=== PATIENT | female | born 1935 | race Caucasian/White ===

== ENCOUNTER → 2016-03-23 | Outpatient (CLI) | payer MEDICARE, OTHER ==
[~2016-03-23] MED LIST: ADVAIR 250/501 EA INH; ALBUTEROL0.09 MG/A2 IH; ALLERGY RELIEF10 M1 PO; ALLOPURINOL100 MG PO; AZITHROMYCIN250 MG PO; B12,B-12,B 12500 MC1 PO; CALCIUM + D 6001 TA1 PO; CEFUROXIME250 MG PO; CELEBREX100 MG PO; CELEBREX200 MG PO; DAYPRO600 M1 PO; DOXYCYCLINE100 M3 PO; ELIQUIS5 M1 PO; Flovent 220 M220 MCG INH; JANUMET 500 MG-1 TA1 PO; JANUVIA25 MG PO; K-DUR 1010 MEQ PO; LASIX20 MG PO; LORATADINE10 MG PO; LOSARTAN POTASS1 TA1 PO; LOSARTAN POTASS1 TA2 PO; LOSARTAN POTASS1 TA4 PO; MELOXICAM7.5 MG PO; METOPROLOL SUC100 M1 PO; METOPROLOL50 MG PO; MICRO-K10 MEQ PO; MUCINEX600 MG PO; NEURONTIN100 MG PO; PANTOPRAZOLE SO40 MG PO; PANTOPRAZOLE40 M1 PO; POTASSIUM20 MEQ PO; PREDNISONE10 MG PO; ROBAXIN750 MG PO; SYNTHROID0.1 MG PO; VENTOLIN 02.5 MG/3 M INH; VENTOLIN H0.09 MG/AC INH; VISION PLUS LU1 EACH PO; VITAMIN D1000 IU PO; VITAMIN D50000 I3 PO; ZITHROMAX250 MG PO; ZOLPIDEM10 MG PO; [UNRECOGNIZED DRUG - CODE] PO
[2016-03-23 11:53] LABS: POTASSIUM 3.5 mmol/L (3.5-5.1)
== END | disposition home or self-care (01) ==
LOC: LAB 10:43
PROVIDERS: Family Medicine
DX: N17.9 Acute kidney failure, unspecified (principal)

== ENCOUNTER 2016-06-21 12:15 | Inpatient (IN) | payer MEDICARE, OTHER ==
[~2016-06-21] VITALS: Ht 165.1 cm; Wt 74.9 kg
--- NOTE | ~2016-06-21 | CON ---
[place], [place] REPORT OF CONSULTATION NAME: ISHAN FINLEY UNIT #: [id number] ROOM: [facility] DOCTOR: BRANDON LANCE,NAKITA BIRTHDATE: [birth year] DOS: 06/22/2016 CARDIOLOGY CONSULT REASON FOR CONSULTATION: Congestive heart failure. CLINICAL HISTORY: The patient a 80-year-old patient with a history of hypertension, diastolic heart failure, chronic atrial fibrillation, peripheral vascular disease, diabetes admitted to the hospital for a slight worsening of her lower extremity edema as well as shortness of breath for the past couple of weeks but her symptoms are more with exertional dyspnea, but no palpitations, dizziness, no syncope. She did have some mild orthopnea. No nausea, vomiting, diarrhea. No headache. No tingling, numbness or weakness. No hemoptysis or cough. No hematuria, dysuria. No joint tenderness or swelling. She have occasional some resting sharp left-sided chest pains at rest, nonradiating, no associated symptoms and this pain lasts for about a couple of minutes and relieves on its own. The Cardiology consulted for her congestive heart failure based on her symptoms and elevated ProBNP levels. REVIEW OF SYSTEMS: Review of the 10 systems negative except as mentioned above. PAST MEDICAL HISTORY: 1. Chronic atrial fibrillation. 2. Chronic diastolic heart failure. 3. hypertension. 4. Chronic kidney disease. 5. Peripheral vascular disease. 6. Hypothyroidism. 7. GERD. 8. COPD. 9. Morbid obesity. 10. Type 2 diabetes. 11. TMJ pain, chronic. 12. Anemia. 13. Mild mitral regurgitation. PAST SURGICAL HISTORY: Hiatal hernia repair, cataract surgery, cholecystectomy, polypectomy, cardiac cath, hysterectomy and hernia repair. SOCIAL HISTORY: The patient does not smoke or drink, does not use alcohol. FAMILY HISTORY: Father in his 40s from cirrhosis of the liver. Mother at the age of 42 from leukemia. ALLERGIES: THE PATIENT IS ALLERGIC TO PENICILLIN, BACTRIM, AND IVP DYE. HOME MEDICATIONS AND CURRENT MEDICATIONS: Reviewed. PHYSICAL EXAMINATION: VITAL SIGNS: Blood pressure 150/88, pulse 92, respiratory rate is 20, weight [place], [place] REPORT OF CONSULTATION NAME: ISHAN FINLEY UNIT #: [id number] ROOM: 503 DOCTOR: BRANDON LANCE,NAKITA BIRTHDATE: [birth year] 76.8 kg. GENERAL: Alert, comfortable, in no acute distress. HEAD AND NECK: Pupils are round and equal. No jaundice. Tongue was moist and pharynx was clear. NECK: Supple, no distended neck veins, no carotid bruit. CHEST: Chest wall symmetrical, nontender. LUNGS: Few scattered rhonchi, but good air entry bilaterally. HEART: Regular rhythm. No S3. Grade 1/6 systolic murmur. No palpable thrills. ABDOMEN: Obese, nontender. Bowel sounds normal, no pulsatile aorta. EXTREMITIES: Showed 1-2+ bilateral pitting edema. Distal pulses are fair. SKIN: Warm and dry. No cyanosis, no clubbing. NEUROLOGIC: The patient is alert, oriented. No focal neurologic deficit. RECTAL: Deferred. GENITOURINARY: Deferred. REVIEW OF THE DIAGNOSTIC TESTS: EKG, rhythm strips and labs reviewed. IMPRESSION: 1. Acute on chronic diastolic heart failure. 2. Hypertension. 3. Atypical chest pain. 4. Hypertension. 5. Obesity. 6. Peripheral vascular disease. 7. Chronic kidney disease. 8. Chronic obstructive pulmonary disease. 9. Diabetes type 2. RECOMMENDATIONS: 1. Continue current medications. 2. We will monitor heart rate and blood pressure. 3. She is on Lasix 40 mg IV and if she is improving, we will change the Lasix to p.o. tomorrow and she needs Lasix 40 mg daily at home and monitor heart rate and blood pressure. 4. Her echo from March 2016 and the stress test from November 2015 reviewed. If she is feeling better and stable, she can be discharged home tomorrow on her home medications as well as Lasix 40 mg once daily. There is no family at bedside at the time of examination. Risk factor modification discussed. [place], [place] REPORT OF CONSULTATION NAME: ISHAN FINLEY UNIT #: [id number] ROOM: 503 DOCTOR: NAKITA TAYLOR MD BIRTHDATE: [birth year] NAKITA TAYLOR MD CM:CONSTR:REPORT OF CONSULTATION 2302 06/23/16 0424 interface
--- NOTE | ~2016-06-21 | PR ---
[place], [place] PROGRESS NOTE NAME: ISHAN FINLEY LOCATED WITHIN [facility] #: [id number] UNIT #: [id number] ROOM: 503 DOCTOR: BRANDON LANCE,NAKITA BIRTHDATE: [birth year] DOS: 06/23/2016 ADDENDUM REASON FOR VISIT: CHF and atrial fibrillation. This note is an addendum to the note done by . I personally examined and assessed the patient. Rhythm strips and medications reviewed. PHYSICAL EXAMINATION: HEART: Focused cardiac exam showed heart with regular rhythm. No S3. LUNGS: Clear to auscultation. EXTREMITIES: Showed no edema. IMPRESSION: 1. Acute on chronic diastolic heart failure. 2. Atrial fibrillation. 3. Hypertension. 4. Peripheral vascular disease. 5. Chronic kidney disease. RECOMMENDATIONS: 1. Continue current medications. 2. She will take Lasix 40 mg at home and monitor her blood pressures and renal function. 3. Followup office visit in 3 weeks at [facility] Cardiology. NAKITA TAYLOR MD CM:PNTRANS [id number] NAKITA TAYLOR MD 06/24/16 0149 interface
[2016-06-21 12:49] VITALS: BP 153/86
[2016-06-21 13:24] LABS: BASO % 0.4 % (0.0-1.0); EOS # 0.3 10*3/uL (0.0-0.4); EOS % 2.6 % (1.0-4.0); HEMATOCRIT 39.6 % (37.0-47.0); HEMOGLOBIN 11.9 g/dl (12.0-16.0); IG # 0.1 10*3/uL (0.0-0.1); LYMPH # 1.3 10*3/uL (1.3-4.4); MEAN CELL VOLUME 86.7 fl (81.0-99.0); MEAN CORPUSCULAR HGB CONC 30.1 g/dl (33.0-37.0); MONO # 0.7 10*3/uL (0.1-1.0); NEUT # 7.5 10*3/uL (2.3-7.9); NEUT % 76.5 % (47.0-73.0); PLATELET COUNT AUTOMATED 219 10*3/uL (130-400); RED BLOOD COUNT 4.57 10*6/uL (4.10-5.10); RED CELL DISTRI WIDTH 23.4 % (0-14.5); WHITE BLOOD COUNT 9.9 10*3/uL (4.8-10.8)
[2016-06-21 13:33] LABS: INTERNATIONAL NORM RATIO 1.1 (2.0-3.5); PROTHROMBIN TIME 11.9 SECONDS (9.0-12.4)
[2016-06-21 13:42] LABS: ALBUMIN 3.6 gm/dl (3.1-4.5); BILIRUBIN, TOTAL 0.7 mg/dl (0.2-1.0); POTASSIUM 4.9 mmol/L (3.5-5.1); TOTAL PROTEIN 7.2 gm/dL (6.4-8.2)
[2016-06-21 13:49] LABS: TROPONIN I 0.068 ng/ml (<0.045)
[2016-06-21 14:28] LABS: BILIRUBIN NEGATIVE (NEGATIVE); BLOOD NEGATIVE (NEGATIVE); CLARITY SL CLOUDY (CLEAR); COLOR YELLOW (YELLOW); GLUCOSE NEGATIVE (NEGATIVE); KETONE NEGATIVE (NEGATIVE); LEUKO ESTERASE NEGATIVE (NEGATIVE); NITRITE NEGATIVE (NEGATIVE); PH 6.5 (5.0-9.0); PROTEIN NEGATIVE (NEGATIVE); UROBILINOGEN 0.2 E.U./dl (0.2-1.0)
[2016-06-21 14:42] LABS: EPITHELIAL CELLS 0-2; URINE REFLEX COMMENT NO (NO); WBC 0-2 wbc/hpf (0-5)
[2016-06-21 17:02] VITALS: BP 140/93
[2016-06-21 18:50] LABS: CKMB 2.1 ng/ml (0.5-3.6)
[2016-06-21 18:55] LABS: TROPONIN I 0.078 ng/ml (<0.045)
[2016-06-21 21:07] VITALS: BP 155/59
[2016-06-22] VITALS: BP 140/94
[2016-06-22 00:54] LABS: CKMB 1.8 ng/ml (0.5-3.6)
[2016-06-22 00:57] LABS: TROPONIN I 0.085 ng/ml (<0.045)
[2016-06-22 06:16] LABS: BASO # 0.1 10*3/uL (0.0-0.1); BASO % 0.5 % (0.0-1.0); EOS # 0.3 10*3/uL (0.0-0.4); EOS % 3.3 % (1.0-4.0); HEMATOCRIT 37.3 % (37.0-47.0); HEMOGLOBIN 11.6 g/dl (12.0-16.0); IG # 0.1 10*3/uL (0.0-0.1); LYMPH # 1.8 10*3/uL (1.3-4.4); LYMPH % 19.1 % (27.0-41.0); MEAN CORPUSCULAR HGB 26.4 pg (27.0-31.0); MEAN CORPUSCULAR HGB CONC 31.1 g/dl (33.0-37.0); MEAN PLATELET VOLUME 10.4 fl (9.6-12.3); MONO # 0.7 10*3/uL (0.1-1.0); MONO % 7.3 % (3.0-9.0); NEUT # 6.5 10*3/uL (2.3-7.9); NEUT % 69.3 % (47.0-73.0); PLATELET COUNT AUTOMATED 223 10*3/uL (130-400); RED BLOOD COUNT 4.39 10*6/uL (4.10-5.10); RED CELL DISTRI WIDTH 23.4 % (0-14.5); WHITE BLOOD COUNT 9.3 10*3/uL (4.8-10.8)
[2016-06-22 06:50] LABS: TROPONIN I 0.073 ng/ml (<0.045)
[2016-06-22 06:56] LABS: ALBUMIN 3.2 gm/dl (3.1-4.5); BILIRUBIN, TOTAL 0.5 mg/dl (0.2-1.0); MAGNESIUM 1.8 mg/dL (1.5-2.1); PHOSPHOROUS 3.8 mg/dL (2.5-4.9); TOTAL PROTEIN 6.6 gm/dL (6.4-8.2)
[2016-06-22 07:01] LABS: THYROID STIM HORMONE (HS) 2.46 uIU/ml (0.358-4.75)
[2016-06-22 07:03] LABS: INTERNATIONAL NORM RATIO 1.1 (2.0-3.5); PROTHROMBIN TIME 11.4 SECONDS (9.0-12.4)
[2016-06-22 07:13] LABS: VITAMIN D, 25-HYDROXY 35.5 ng/mL (30-100)
[2016-06-22 07:14] LABS: POTASSIUM 3.4 mmol/L (3.5-5.1)
[2016-06-22 07:17] LABS: FOLIC ACID > 24.00 ng/mL (>5.38)
[2016-06-22 08:00] VITALS: BP 150/88
[2016-06-22 12:00] VITALS: BP 142/90
[2016-06-22 16:00] VITALS: BP 131/168; BP 131/68
[2016-06-22 20:00] VITALS: BP 140/95
[2016-06-23] VITALS: BP 131/65
[2016-06-23 05:48] LABS: POTASSIUM 3.7 mmol/L (3.5-5.1)
[2016-06-23 08:00] VITALS: BP 130/58
[2016-06-23] MEDS ORDERED: KLOR-CON M1010 ME1 PO (11:16)
[2016-06-23] MEDS ORDERED: LASIX40 MG PO (11:16)
[2016-06-23 12:00] VITALS: BP 127/60
== END 2016-06-23 14:15 | disposition home or self-care (01) | DRG 291 ==
LOC: ED 12:15 → 5E 14:11 → EDHOLD 14:11 → 5E 15:40
PROVIDERS: Emergency Medicine; Internal Medicine; Student in an Organized Health Care Education/Training Program
DX: I13.0 Hypertensive heart and chronic kidney disease with heart failure and stage 1 through stage 4 chronic kidney disease, or unspecified chronic kidney disease (principal); I50.33 Acute on chronic diastolic (congestive) heart failure; D68.59 Other primary thrombophilia; E11.51 Type 2 diabetes mellitus with diabetic peripheral angiopathy without gangrene; E11.22 Type 2 diabetes mellitus with diabetic chronic kidney disease; E11.65 Type 2 diabetes mellitus with hyperglycemia; N18.3 Chronic kidney disease, stage 3 (moderate); E66.01 Morbid (severe) obesity due to excess calories; I48.2 Chronic atrial fibrillation; I34.0 Nonrheumatic mitral (valve) insufficiency; M26.609 Unspecified temporomandibular joint disorder, unspecified side; J30.2 Other seasonal allergic rhinitis; M10.9 Gout, unspecified; M15.9 Polyosteoarthritis, unspecified; E03.9 Hypothyroidism, unspecified; K21.9 Gastro-esophageal reflux disease without esophagitis; D50.8 Other iron deficiency anemias; J44.9 Chronic obstructive pulmonary disease, unspecified; Z79.4 Long term (current) use of insulin; Z98.42 Cataract extraction status, left eye; Z98.41 Cataract extraction status, right eye; Z90.49 Acquired absence of other specified parts of digestive tract; Z90.710 Acquired absence of both cervix and uterus; Z83.79 Family history of other diseases of the digestive system; Z80.6 Family history of leukemia; Z79.899 Other long term (current) drug therapy; Z88.0 Allergy status to penicillin; Z88.2 Allergy status to sulfonamides; Z91.041 Radiographic dye allergy status; Z88.8 Allergy status to other drugs, medicaments and biological substances; Z68.34 Body mass index [BMI] 34.0-34.9, adult

== ENCOUNTER → 2016-10-01 | Outpatient (CLI) | payer MEDICARE, OTHER ==
[~2016-10-01] MED LIST changes: +KLOR-CON M1010 ME1 PO; +LASIX40 MG PO
== END | disposition home or self-care (01) ==
LOC: LAB 11:10
DX: K62.5 Hemorrhage of anus and rectum (principal); R19.5 Other fecal abnormalities

== ENCOUNTER 2016-11-02 18:13 | Inpatient (IN) | payer MEDICARE, OTHER ==
[~2016-11-02] VITALS: Ht 152.4 cm; Wt 57.2 kg
[2016-11-02 18:17] VITALS: BP 116/78
[2016-11-02 18:59] LABS: BASO % 0.2 % (0.0-1.0); EOS # 0.2 10*3/uL (0.0-0.4); HEMOGLOBIN 13.2 g/dl (12.0-16.0); LYMPH # 1.5 10*3/uL (1.3-4.4); LYMPH % 10.4 % (27.0-41.0); MEAN CELL VOLUME 89.4 fl (81.0-99.0); MEAN CORPUSCULAR HGB 30.3 pg (27.0-31.0); MEAN CORPUSCULAR HGB CONC 33.8 g/dl (33.0-37.0); MEAN PLATELET VOLUME 10.2 fl (9.6-12.3); MONO % 6.9 % (3.0-9.0); NEUT % 80.7 % (47.0-73.0); PLATELET COUNT AUTOMATED 395 10*3/uL (130-400); RED BLOOD COUNT 4.36 10*6/uL (4.10-5.10); RED CELL DISTRI WIDTH 14.5 % (0-14.5); WHITE BLOOD COUNT 14.9 10*3/uL (4.8-10.8)
[2016-11-02 19:04] LABS: ACT PARTIAL THROMBO TIME 28.3 SECONDS (20.8-31.5); INTERNATIONAL NORM RATIO 1.1 (2.0-3.5)
[2016-11-02 19:11] LABS: ALBUMIN 2.5 gm/dl (3.1-4.5); CREATININE 2.01 mg/dL (0.55-1.02); POTASSIUM 4.9 mmol/L (3.5-5.1); TOTAL PROTEIN 8.1 gm/dL (6.4-8.2); TROPONIN I 0.04 ng/ml (<0.045)
[2016-11-02 20:38] LABS: BILIRUBIN NEGATIVE (NEGATIVE); BLOOD TRACE-INTACT (NEGATIVE); CLARITY SL CLOUDY (CLEAR); COLOR YELLOW (YELLOW); GLUCOSE TRACE (NEGATIVE); KETONE NEGATIVE (NEGATIVE); LEUKO ESTERASE 1+ (NEGATIVE); NITRITE NEGATIVE (NEGATIVE); UROBILINOGEN 0.2 E.U./dl (0.2-1.0)
[2016-11-02 20:49] LABS: BACTERIA 2+; EPITHELIAL CELLS TNTC; RBC 0-2 rbc/hpf (0-2); WBC TNTC wbc/hpf (0-5)
--- NOTE | 2016-11-02 21:07 | NUR ---
LAB NOTIFIED US LACTIC ACID 2.8. DAMIEN DISTRIBUTION CLERK NOTIFIED.
[2016-11-02 22:18] VITALS: BP 125/58
--- NOTE | 2016-11-02 22:18 | NUR ---
A 81, admitted to , under the services of OLE Campbell DO with a diagnosis of SEPSIS. Chief complaint is FOR 3 WEEKS FATIGUE,WEAKNESS IN LEGS, NAUSEA, DIZZINESS, PERIODS OF SOB. Patient arrived via stretcher from ER. Monitor applied. Initial assessment completed. Vital signs taken and recorded. OLE CAMPBELL DO notified of admission to the unit. Orders received. See assessment for past medical history, medications and allergies. Patient and/or family oriented to unit. [facility] visitation policy reviewed. Clothing/patient valuable form completed. NIHARIKA CASTRO
[2016-11-02] MEDS ORDERED: ALDACTONE25 M1 PO (22:48)
[2016-11-02] MEDS ORDERED: COZAAR100 MG PO (22:50)
[2016-11-02] MEDS ORDERED: CELECOXIB200 M1 PO (22:53)
[2016-11-02] MEDS ORDERED: BREO ELLIPTA 21 EACH INH (22:55)
[2016-11-02] MEDS ORDERED: RESTORIL15 MG PO (23:01)
--- NOTE | 2016-11-02 23:24 | NUR ---
LAB CALLED NOTIFIED OF CRITICAL LAB LACTIC ACID OF 2.3 CALLED AND SPOKE WITH DR. CAO AND NO ORDER AT THIS TIME.
[2016-11-03 04:00] VITALS: BP 109/59
--- NOTE | 2016-11-03 06:40 | NUR ---
called and spoke with Dr. Galvan about home medications and patient wanting to be a DNR-CC and he said he would pass it on the the AM team.
[2016-11-03 06:59] LABS: BASO % 0.3 % (0.0-1.0); EOS # 0.2 10*3/uL (0.0-0.4); EOS % 1.3 % (1.0-4.0); HEMATOCRIT 36.7 % (37.0-47.0); HEMOGLOBIN 11.8 g/dl (12.0-16.0); LYMPH # 1.7 10*3/uL (1.3-4.4); MEAN CELL VOLUME 89.5 fl (81.0-99.0); MEAN CORPUSCULAR HGB 28.8 pg (27.0-31.0); MEAN CORPUSCULAR HGB CONC 32.2 g/dl (33.0-37.0); MEAN PLATELET VOLUME 10.1 fl (9.6-12.3); MONO # 0.9 10*3/uL (0.1-1.0); MONO % 6.9 % (3.0-9.0); NEUT # 10.4 10*3/uL (2.3-7.9); NEUT % 77.7 % (47.0-73.0); PLATELET COUNT AUTOMATED 346 10*3/uL (130-400); RED CELL DISTRI WIDTH 14.6 % (0-14.5); WHITE BLOOD COUNT 13.4 10*3/uL (4.8-10.8)
[2016-11-03 07:35] LABS: CREATININE 1.58 mg/dL (0.55-1.02); PHOSPHOROUS 3.1 mg/dL (2.5-4.9)
[2016-11-03 07:40] LABS: ACT PARTIAL THROMBO TIME 27.1 SECONDS (20.8-31.5); INTERNATIONAL NORM RATIO 1.1 (2.0-3.5)
[2016-11-03 07:41] LABS: THYROID STIM HORMONE (HS) 2.92 uIU/ml (0.358-4.75)
[2016-11-03 07:43] LABS: POTASSIUM 3.9 mmol/L (3.5-5.1)
[2016-11-03 08:00] VITALS: BP 109/73
--- NOTE | 2016-11-03 09:08 | NUR ---
PHYSICAL THERAPY PAtient is sleeping at this time, will attempt later this am. Thank you for this freferral. Nancy Matos,PT
[2016-11-03 09:12] LABS: VITAMIN D, 25-HYDROXY 35.6 ng/mL (30-100)
--- NOTE | 2016-11-03 09:26 | NUR ---
Corporate Learning Consultant in to talk to patient. Patient states lives at home with . There are few steps in the home. Physician: joes antonio mares [facility] Patient's level of ADLs: MINIMAL ASSIST Patient has working utilities: all working DME: cane, rollator walker Follow-up physician's appointment after d/c: will be made by hospitalist nurse director upon discharge Does patient want to access PORTAL?: no Discharge plan discussed with patient, patient lives at home with , she states she uses a cane for ambulation and is independent in adls, patient also states that lately she hasn't been getting around very well, discussed with her a short term usp for rehab prior to going back home, patient was undecided if she wanted to do this, also discussed VNA, patient is to have a pt eval done today, she wanted to wait to make a decision to see what pt will recommend, case management will follow. ARNULFO AVENDANO
--- NOTE | 2016-11-03 10:31 | NUR ---
PHYSICAL THERAPY PAtient evaluated on 5, full evaluation to follow. Continue with PT as per plan of care with fall, vertigo adn acute debility precautions. Recommend SNF for impaired mobility- patient declines. Will require 24/7 family assist and complete home health services recommended. PAtient is moderate complexity via chart review, tests and evaluation: [id number]. Thank you for this referral; aNncy Matos,PT
--- NOTE | 2016-11-03 11:33 | NUR ---
strategic planner in to see patient to discuss physical therapy assesment recommendation of skilled rehab. Patient stated she will not go to a senior living because she has seen to many bad things in nursing homes with a family member. Discussed with patient about going to rehab suites that accomodates patients for short term rehab. She seemed interested and stated she would talk to her about it when he comes in. Will follow up and discuss again with patient and this afternoon.
[2016-11-03 12:00] VITALS: BP 104/60
--- NOTE | 2016-11-03 12:30 | NUR ---
PHYSICAL THERAPY Mrs Taylor seen this PM 1:1 for her therapy gait. All transfers were CGA X 1, no LOB. Gait with Pt's straight cane in her right hand 60' X 2, stop/start gait, Pt having IV pole this gait, and little vertigo this gait with no LOB. Pt back supine in bed and having no complaints, only wanting to go home when D/C. MONICO RODRIGUEZ VEGETABLE I FARMWORKER.
--- NOTE | 2016-11-03 12:53 | NUR ---
It to talk with patient and . After much discussion, they have decided they would rather have a prescription for out patient therapy rather than going to a skilled rehab facility. Will notify Edelmira matos.
[2016-11-03 16:00] VITALS: BP 142/56
[2016-11-03 20:00] VITALS: BP 129/81; BP 133/52
--- NOTE | 2016-11-03 20:00 | NUR ---
PATIENT SITTING UP IN CHAIR. HAS NO COMPLAINTS AT THIS TIME. PATIENT DID ASK FOR HER NEUROTIN EARLY DUE TO HER RESTLESS LEGS. REVIEWED MED REQ WITH PATIENT. PATIENT DID STATE THAT HER BS HAS BEEN HIGH SINCE DR. CAN CHANGED HER MEDS.
[2016-11-04] VITALS: BP 112/79
--- NOTE | 2016-11-04 00:48 | NUR ---
24 HR chart check completed.
[2016-11-04 06:37] LABS: BASO % 0.1 % (0.0-1.0); EOS # 0.1 10*3/uL (0.0-0.4); HEMATOCRIT 31.3 % (37.0-47.0); HEMOGLOBIN 10.5 g/dl (12.0-16.0); LYMPH # 1.8 10*3/uL (1.3-4.4); LYMPH % 12.9 % (27.0-41.0); MEAN CELL VOLUME 89.9 fl (81.0-99.0); MEAN CORPUSCULAR HGB 30.2 pg (27.0-31.0); MEAN CORPUSCULAR HGB CONC 33.5 g/dl (33.0-37.0); MEAN PLATELET VOLUME 10.1 fl (9.6-12.3); MONO # 1.3 10*3/uL (0.1-1.0); MONO % 9.1 % (3.0-9.0); NEUT # 10.5 10*3/uL (2.3-7.9); NEUT % 75.8 % (47.0-73.0); PLATELET COUNT AUTOMATED 298 10*3/uL (130-400); RED BLOOD COUNT 3.48 10*6/uL (4.10-5.10); RED CELL DISTRI WIDTH 14.6 % (0-14.5); WHITE BLOOD COUNT 13.9 10*3/uL (4.8-10.8)
[2016-11-04 06:40] LABS: CREATININE 1.11 mg/dL (0.55-1.02); POTASSIUM 3.8 mmol/L (3.5-5.1)
--- NOTE | 2016-11-04 07:30 | NUR ---
ASSUMED CARE OF PT AT THIS TIME, PT RESTING IN BED WITH EYES OPEN ALERT AND OREINTED, VOICES NO CONCERNS OR COMPLAINTS AT THIS TIME
[2016-11-04 08:00] VITALS: BP 113/56
--- NOTE | 2016-11-04 09:00 | NUR ---
case management visits with patient, discussed again with her a short term usp, patient stated that she talked with her regarding this and they both decided that outpatient therapy at the [facility] would be better, case management will follow for any other needs
--- NOTE | 2016-11-04 09:00 | NUR ---
PT C/O CONSTIPATION REQUESTING SOMETHING TO ASSIST WITH MOVING BOWELS, ADMINISTERED DULCOLAX PO PRN PER ORDERS, WILL MONITOR EFFECTS
--- NOTE | 2016-11-04 09:15 | NUR ---
PHYSICAL THERAPY Pt just given a laxative and did not with her therapy at this time, to come back later. MONICO RODRIGUEZ REGISTRATION SCHEDULING SPECIALIST.
--- NOTE | 2016-11-04 10:00 | NUR ---
PT PLACES CALL LIGHT ON, PT IN BATHROOM AND HAD A BOWEL MOVEMENT, PO PRN DULCOLAX EFFECTIVE
[2016-11-04 12:00] VITALS: BP 117/59
--- NOTE | 2016-11-04 13:33 | NUR ---
PHYSICAL THERAPY Mimi seen this PM and still not feeling well, ask if i could come back tomorrow, and she's going down to X-Ray on her stomach here in a little bit. MONICO RODRIGUEZ ABSTRACT SEARCHER.
[2016-11-04 16:00] VITALS: BP 128/57
[2016-11-04 20:00] VITALS: BP 116/57
--- NOTE | 2016-11-04 20:45 | NUR ---
RESTING IN BED WATCHING TV. RESPIRATIONS EASY. LUNGS DIMINISHED, CLEAR. PULSE OX 98% RA. ABD SOFT WITH HYPOACTIVE BOWEL SOUNDS. C/O LEFT SIDED ABD DISCOMFORT RATING A 7, MEDICATED WITH TYLENOL PER PRN ORDER. ALSO MEDICATED WITH RESTORIL PER PRN ORDER TO ASSIST WITH SLEEP. CALL LIGHT WITHIN REACH. WILL MONITOR FOR MEDICATION EFFECTIVENESS.
--- NOTE | 2016-11-04 23:00 | NUR ---
EARLIER MEDS APPEAR EFFECTIVE. SLEEPING. RESPIRATIONS EASY. CALL LIGHT WITHIN REACH
[2016-11-05] VITALS: BP 98/67
--- NOTE | 2016-11-05 00:30 | NUR ---
CONTINUES TO SLEEP WITH NO DISTRESS NOTED. RESPIRATIONS EASY. VSS. CALL LIGHT WITHIN REACH
--- NOTE | 2016-11-05 05:53 | NUR ---
AWAKENED FOR AM MEDS, C/O PAIN TO LEFT ABD RATING A 10. MEDICATED WITH NORCO PER PRN ORDER. CALL LIGHT WITHIN REACH. WILL MONITOR FOR EFFECTIVENESS
--- NOTE | 2016-11-05 06:45 | NUR ---
STATES EARLIER NORCO HELPING WITH PAIN. CALL LIGHT WITHIN REACH. NO FURTHER VOICED COMPLAINTS
[2016-11-05 07:12] LABS: BASO % 0.2 % (0.0-1.0); EOS # 0.2 10*3/uL (0.0-0.4); EOS % 1.7 % (1.0-4.0); HEMOGLOBIN 10.4 g/dl (12.0-16.0); LYMPH # 1.5 10*3/uL (1.3-4.4); LYMPH % 12.6 % (27.0-41.0); MEAN CELL VOLUME 91.7 fl (81.0-99.0); MEAN CORPUSCULAR HGB 29.8 pg (27.0-31.0); MEAN CORPUSCULAR HGB CONC 32.5 g/dl (33.0-37.0); MEAN PLATELET VOLUME 9.7 fl (9.6-12.3); MONO # 1.1 10*3/uL (0.1-1.0); MONO % 9.4 % (3.0-9.0); NEUT # 8.7 10*3/uL (2.3-7.9); NEUT % 75.5 % (47.0-73.0); PLATELET COUNT AUTOMATED 281 10*3/uL (130-400); RED BLOOD COUNT 3.49 10*6/uL (4.10-5.10); RED CELL DISTRI WIDTH 14.6 % (0-14.5); WHITE BLOOD COUNT 11.6 10*3/uL (4.8-10.8)
[2016-11-05 07:37] LABS: BUN 11 mg/dl (7-24); CHLORIDE 110 mmol/L (98-107); MAGNESIUM 1.9 mg/dL (1.5-2.1); POTASSIUM 3.5 mmol/L (3.5-5.1); SODIUM 144 mmol/L (136-145)
[2016-11-05 07:38] LABS: CREATININE 0.99 mg/dL (0.55-1.02); PHOSPHOROUS 2.8 mg/dL (2.5-4.9)
[2016-11-05 08:00] VITALS: BP 102/52
--- NOTE | 2016-11-05 08:47 | NUR ---
HOB ELEVATED, EASY RESPIRATIONS WITH SKIN W/D. PT CONTINUES TO C/O LLQ ABD DISCOMFORT. ABD SOFT WITH ACTIVE BOWEL SOUNDS THROUGHOUT. TENDER TO PALPATION ON LLQ. PT STATES MEDICATION GIVEN PREVIOUSLY EFFECTIVE IN ALLEVIATING DISCOMFORT. REVIEWED PRN MEDS, PT VOICES UNDERSTANDING. SEE SHIFT ASSESSMENT.
--- NOTE | 2016-11-05 09:00 | NUR ---
case management visits with patient, patient states she will be going home when able, patient states she will be going to outpatient rehab at the [facility], case management will follow for any needs
--- NOTE | 2016-11-05 10:31 | NUR ---
SPOKE WITH JORGE IN RADIOLOGY REGARDING KUB REPORT AT DR WATSON'S REQUEST.
--- NOTE | 2016-11-05 11:00 | NUR ---
PHYSICAL THERAPY Mimi seen this AM 1:1 for her therapy session. Pt said that she did use to bathroom last night and feels much better today. All transfers were supervision X 1, no LOB. Followed by gait with pt's straight cane 160' X 1, no LOB, CG X 1, and said that she is feeling much lenny today. Pt up in her bedside chair and having no complaints and wanting to take a shower, treatment time 17 min. MONICO RODRIGUEZ DYNAMIC BALANCER SET UP WORKER.
[2016-11-05 12:00] VITALS: BP 119/56
--- NOTE | 2016-11-05 12:38 | NUR ---
PHYSICAL THERAPY Mimi was seen this PM 1:1 and improving with her therapy. All transfers were independent. Gait with her straight cane total 180' X 1, supervision X 1, no LOB with this. Pt up in her bedside chair call light and phone, treatment time 18 min. MONICO RODRIGUEZ TACKING STITCH REMOVER.
[2016-11-05 16:00] VITALS: BP 137/67
--- NOTE | 2016-11-05 16:14 | NUR ---
SPOKE WITH DR Char ENGEL REGARDING CT ORDER & PT ALLERY TO IVP DYE. INFORMED THAT PREMEDICATION TAKES 13 HRS. WILL AWAIT FURTHER ORDERS TO WHETHER TO START PREP NOW & DO CT IN AM.
--- NOTE | 2016-11-05 17:31 | NUR ---
MEDICATED PO ORDERED PER PT REQUEST WITH NORCO FOR C/O LLQ ABD & LT FLANK PAIN. PT RATES PAIN 09/13. SEE EMAR. DISCUSSED OTHER PRN MEDICATIONS WELL.
[2016-11-05 20:00] VITALS: BP 112/55
--- NOTE | 2016-11-05 20:30 | NUR ---
RESTING IN BED WITH EYES CLOSED AND NO DISTRESS NOTED. RESPIRATIONS EASY. LUNGS DIMINISHED, CLEAR. PULSE OX 95% RA. ABD SOFT WITH HYPOACTIVE BOWEL SOUNDS. CALL LIGHT WITHIN REACH. NO VOICED COMPLAINTS
--- NOTE | 2016-11-05 22:57 | NUR ---
C/O LEFT ABD/FLANK PAIN RATING A 6, MEDICATED WITH NORCO PER PRN ORDER. ALSO RECEIVED RESTORIL TO ASSIST WITH SLEEP. CALL LIGHT WITHIN REACH. WILL MONITOR FOR EFFECTIVENESS
[2016-11-06] VITALS: BP 152/84
--- NOTE | 2016-11-06 | NUR ---
EARLIER MEDS APPEAR EFFECTIVE. RESTING WITH EYES CLOSED. RESPIRATIONS EASY. VSS. CALL LIGHT WITHIN REACH.
--- NOTE | 2016-11-06 03:00 | NUR ---
CALLED TO ROOM BY PATIENT. SITTING IN RECLINER. C/O SWELLING TO FEET. NO EDEMA NOTED BUT PATIENT STATES "THEY FEEL TIGHT." ENCOURAGED TO ELEVATE BLE
--- NOTE | 2016-11-06 07:00 | NUR ---
TRANSPORTED OFF FLOOR VIA WC FOR TESTING
[2016-11-06 07:10] LABS: HEMATOCRIT 33.8 % (37.0-47.0); HEMOGLOBIN 10.9 g/dl (12.0-16.0); MEAN CELL VOLUME 91.6 fl (81.0-99.0); MEAN CORPUSCULAR HGB 29.5 pg (27.0-31.0); MEAN CORPUSCULAR HGB CONC 32.2 g/dl (33.0-37.0); MEAN PLATELET VOLUME 9.9 fl (9.6-12.3); PLATELET COUNT AUTOMATED 333 10*3/uL (130-400); RED BLOOD COUNT 3.69 10*6/uL (4.10-5.10); RED CELL DISTRI WIDTH 14.4 % (0-14.5); WHITE BLOOD COUNT 9.9 10*3/uL (4.8-10.8)
[2016-11-06 07:35] LABS: BUN 14 mg/dl (7-24); CHLORIDE 108 mmol/L (98-107); CREATININE 1.04 mg/dL (0.55-1.02); MAGNESIUM 2.1 mg/dL (1.5-2.1); PHOSPHOROUS 2.7 mg/dL (2.5-4.9); POTASSIUM 4.5 mmol/L (3.5-5.1); SODIUM 141 mmol/L (136-145)
--- NOTE | 2016-11-06 07:35 | NUR ---
RETURNED FROM TESTING
[2016-11-06 07:54] LABS: PLATELET SUFFICIENCY NORMAL (NORMAL); TOTAL CELLS COUNTED 100 #CELLS
[2016-11-06 08:00] VITALS: BP 122/74
[2016-11-06 12:00] VITALS: BP 124/73
[2016-11-06 16:00] VITALS: BP 128/71
[2016-11-06 20:00] VITALS: BP 144/85
--- NOTE | 2016-11-06 20:03 | NUR ---
C/O HEADACHE; MEDICATED WITH NORCO.
--- NOTE | 2016-11-06 22:20 | NUR ---
BLOOD SGUAR 269; COVERAGE GIVEN PER EMAR.
--- NOTE | 2016-11-06 22:30 | NUR ---
NO FURTHER C/O HEADACHE; NORCO GIVEN EARLIER APPARENTLY EFFECTIVE.
[2016-11-07] VITALS: BP 140/79
[2016-11-07 08:00] VITALS: BP 118/61
--- NOTE | 2016-11-07 10:00 | NUR ---
PATIENT RESTING QUIETLY IN BED. RESPIRATIONS EASY/REGULAR. NO SXS OF DISTRESS. NO VOICED COMPLAINTS AT THIS TIME. CALL LIGHT IS IN REACH.
[2016-11-07] MEDS ORDERED: NOVOLOG FL100 UNIT/1 SQ (10:46)
[2016-11-07] MEDS ORDERED: LEVEMIR100 UNIT/1 SC (10:50)
--- NOTE | 2016-11-07 12:30 | NUR ---
PATIENT DISCHARGED. VERBALIZED UNDERSTANDING OF DISCHARGE INSTRUCTIONS. IV REMOVED AND PRESSURE DRESSING APPLIED.
[2016-11-07] MEDS ORDERED: CIPRO500 MG PO (12:52)
== END 2016-11-07 12:30 | disposition home or self-care (01) | DRG 871 ==
LOC: ED 18:13 → 5E 20:40 → EDHOLD 20:40 → 5E 20:56
PROVIDERS: Internal Medicine; Nurse Practitioner Family; ADMIT Internal Medicine
DX: A41.9 Sepsis, unspecified organism (principal); N17.0 Acute kidney failure with tubular necrosis; E43 Unspecified severe protein-calorie malnutrition; I48.0 Paroxysmal atrial fibrillation; E11.65 Type 2 diabetes mellitus with hyperglycemia; E11.22 Type 2 diabetes mellitus with diabetic chronic kidney disease; E11.51 Type 2 diabetes mellitus with diabetic peripheral angiopathy without gangrene; N39.0 Urinary tract infection, site not specified; E87.1 Hypo-osmolality and hyponatremia; N12 Tubulo-interstitial nephritis, not specified as acute or chronic; I13.0 Hypertensive heart and chronic kidney disease with heart failure and stage 1 through stage 4 chronic kidney disease, or unspecified chronic kidney disease; Z66 Do not resuscitate; R65.20 Severe sepsis without septic shock; Z51.5 Encounter for palliative care; N18.3 Chronic kidney disease, stage 3 (moderate); N28.1 Cyst of kidney, acquired; I50.9 Heart failure, unspecified; J44.9 Chronic obstructive pulmonary disease, unspecified; K21.9 Gastro-esophageal reflux disease without esophagitis; M10.9 Gout, unspecified; E03.9 Hypothyroidism, unspecified; M19.90 Unspecified osteoarthritis, unspecified site; G25.81 Restless legs syndrome; J30.2 Other seasonal allergic rhinitis; M26.609 Unspecified temporomandibular joint disorder, unspecified side; Z79.4 Long term (current) use of insulin; Z98.42 Cataract extraction status, left eye; Z98.41 Cataract extraction status, right eye; Z90.49 Acquired absence of other specified parts of digestive tract; Z88.2 Allergy status to sulfonamides; Z68.20 Body mass index [BMI] 20.0-20.9, adult; Z88.0 Allergy status to penicillin; Z88.8 Allergy status to other drugs, medicaments and biological substances; Z91.041 Radiographic dye allergy status; Z90.710 Acquired absence of both cervix and uterus; Z83.3 Family history of diabetes mellitus; Z80.6 Family history of leukemia; Z95.818 Presence of other cardiac implants and grafts; Z79.899 Other long term (current) drug therapy

== ENCOUNTER → 2017-02-23 | Outpatient (CLI) | payer MEDICARE, OTHER ==
[~2017-02-23] MED LIST changes: +ALDACTONE25 M1 PO; +BREO ELLIPTA 21 EACH INH; +CELECOXIB200 M1 PO; +CIPRO500 MG PO; +COZAAR100 MG PO; +LEVEMIR100 UNIT/1 SC; +NOVOLOG FL100 UNIT/1 SQ; +RESTORIL15 MG PO
== END | disposition home or self-care (01) ==
LOC: RAD 08:55
DX: M47.894 Other spondylosis, thoracic region (principal); M47.896 Other spondylosis, lumbar region; M46.94 Unspecified inflammatory spondylopathy, thoracic region; M46.96 Unspecified inflammatory spondylopathy, lumbar region

== ENCOUNTER 2017-06-08 01:50 | Inpatient (IN) | payer MEDICARE, OTHER ==
[~2017-06-08] VITALS: Ht 160 cm; Wt 76.8 kg
--- NOTE | ~2017-06-08 | CON ---
[place], [place] REPORT OF CONSULTATION NAME: ISHAN FINLEY UNIT #: [id number] ROOM: 407 DOCTOR: NAKITA TAYLOR MD BIRTHDATE: [birth year] DOS: 06/08/2017 CARDIOLOGY CONSULT REASON FOR CONSULTATION: Chest pain. CLINICAL HISTORY: The patient is a 81-year-old patient with history of hypertension, chronic kidney disease, COPD, acid reflux and anemia, presents to the hospital with intermittent chest pain. She denies this pain as sharp and dull pain in the left side of the chest with radiation to her left elbow and left arm. This pain started at rest while coloring her book. She also has some associated nausea, but no dizziness, no shortness of breath. This pain lasts for several minutes and gradually relieved. She took 2 aspirins. Due to waxing and waning pain, she presented to Emergency Room and was admitted to the hospital on the Cardiology consult for further recommendations. She denies any fever and chills. No nausea, no PND, no orthopnea. No tingling, numbness or weakness. No blurred vision. No neurologic symptoms. No genitourinary symptoms, no musculoskeletal symptoms. REVIEW OF SYSTEMS: Review of the 10 systems negative except as mentioned above. PAST MEDICAL HISTORY: 1. Hypertension. 2. Atrial fibrillation. 3. Diastolic heart failure. 4. Chronic kidney disease. 5. Chronic obstructive pulmonary disease. 6. Acid reflux. 7. Gout. 8. Hypothyroidism. 9. Non-morbid obesity. 10. Valvular heart disease. PAST SURGICAL HISTORY: Reviewed including polypectomy, hysterectomy, hernia repair, cataract surgery. MEDICATIONS: Reviewed. ALLERGIES: Reviewed. FAMILY HISTORY: Father in the 40s from cirrhosis. Mother at 42 from leukemia. SOCIAL HISTORY: The patient does not smoke or drink, does not use alcohol. HOME MEDICATIONS: Reviewed. PHYSICAL EXAMINATION: VITAL SIGNS: Blood pressure 124/64, pulse 86, respiratory rate 16, weight 76 kilos. [place], [place] REPORT OF CONSULTATION NAME: ISHAN FINLEY UNIT #: [id number] ROOM: 407 DOCTOR: NAKITA TAYLOR MD BIRTHDATE: [birth year] GENERAL: Alert, comfortable, in no acute distress. HEAD AND NECK: Supple, no distended neck veins, no carotid bruit. Tongue was moist and pharynx clear. CHEST: Nontender. LUNGS: Clear to auscultation. HEART: Irregularly irregular and grade 1/6 systolic murmur. ABDOMEN: Benign, nontender. Bowel sounds normal. EXTREMITIES: Showed trace edema. SKIN: Warm and dry. No cyanosis, no clubbing. NEUROLOGIC: The patient is alert, oriented. No focal neurologic deficit. RECTAL: Deferred. GENITOURINARY: Deferred. REVIEW OF THE DIAGNOSTIC TESTS: EKG showed atrial fibrillation. CK-MB and cardiac enzymes, CBC, chemistry and imaging studies reviewed. IMPRESSION: 1. Chest pain, myocardial infarction ruled out. 2. Chronic atrial fibrillation, on Eliquis. 3. History of valvular heart disease with mitral regurgitation. 4. Hypertension. 5. Chronic kidney disease. 6. Chronic obstructive pulmonary disease. 7. Non-morbid obesity. RECOMMENDATIONS: 1. Continue current medications. 2. Lexiscan stress test today. This test is unremarkable. She can be discharged home today and follow up with Dr. Morgan. NAKITA TAYLOR MD CM:CONSTR:REPORT OF CONSULTATION 0856 06/09/17 2205 interface
--- NOTE | ~2017-06-08 | ST ---
[place], [place] EXERCISE STRESS TEST REPORT [facility]: [facility] FINLEY [facility] [id number] UNIT #: [id number] ROOM: 407 DOCTOR: BRANDON LANCE,NAKITA BIRTHDATE: [birth year] DOS: 06/08/2017 STRESS TEST. REASON FOR TEST: Chest pain. REFERRING PHYSICIAN: Dr. Salas. PHYSICAL EXAMINATION NECK: Supple. LUNGS: Clear anteriorly. HEART: irregular. PROTOCOL: Lexiscan protocol. Maximum heart rate 94. Peak blood pressure 126/78. SYMPTOMS: The patient is chest pain free. ELECTROCARDIOGRAM: Resting EKG showed atrial fibrillation. Stress EKG showed no ischemia. Clinically, the patient developed mild chest pain and shortness of breath, resolved. CONCLUSION: Clinically, the patient developed mild chest pain and shortness of breath, resolved. EKG showed no underlying atrial fibrillation with no ischemia. POST-STRESS COMPLICATIONS: None. The patient received a total of 0.4 mg of Lexiscan. NAKITA TAYLOR MD CM:STRESS:EXERCISE STRESS TEST REPORT [id number] NAKITA TAYLOR MD
[2017-06-08 01:50] VITALS: BP 138/72
[2017-06-08 02:25] LABS: BASO # 0.1 10*3/uL (0.0-0.1); BASO % 0.4 % (0.0-1.0); EOS # 0.3 10*3/uL (0.0-0.4); EOS % 2.8 % (1.0-4.0); HEMATOCRIT 41.5 % (37.0-47.0); HEMOGLOBIN 13.4 g/dl (12.0-16.0); LYMPH # 2.3 10*3/uL (1.3-4.4); MEAN CELL VOLUME 89.8 fl (81.0-99.0); MEAN CORPUSCULAR HGB CONC 32.3 g/dl (33.0-37.0); MEAN PLATELET VOLUME 10.4 fl (9.6-12.3); MONO % 8.4 % (3.0-9.0); NEUT # 7.7 10*3/uL (2.3-7.9); PLATELET COUNT AUTOMATED 227 10*3/uL (130-400); RED BLOOD COUNT 4.62 10*6/uL (4.10-5.10); RED CELL DISTRI WIDTH 13.7 % (0-14.5); WHITE BLOOD COUNT 11.3 10*3/uL (4.8-10.8)
[2017-06-08 02:35] LABS: ACT PARTIAL THROMBO TIME 24.3 SECONDS (20.8-31.5)
[2017-06-08 02:42] LABS: ALBUMIN 3.4 gm/dl (3.1-4.5); CREATININE 1.86 mg/dL (0.55-1.02); POTASSIUM 4.2 mmol/L (3.5-5.1); TOTAL PROTEIN 7.7 gm/dL (6.4-8.2); TROPONIN I 0.018 ng/ml (<0.045)
[2017-06-08 03:20] VITALS: BP 140/80; BP 172/94
[2017-06-08] MEDS ORDERED: JANUMET XR 50-1 EACH PO (03:41)
[2017-06-08 08:00] VITALS: BP 120/58
[2017-06-08 08:59] LABS: FREE T4 1.1 ng/dl (0.76-1.46); PHOSPHOROUS 2.9 mg/dL (2.5-4.9); THYROID STIM HORMONE (HS) 3.7 uIU/ml (0.358-4.75)
[2017-06-08 09:07] LABS: VITAMIN D, 25-HYDROXY 38.1 ng/mL (30-100)
[2017-06-08 12:00] VITALS: BP 138/93
[2017-06-08 16:00] VITALS: BP 138/79
[2017-06-08 19:47] LABS: BILIRUBIN NEGATIVE (NEGATIVE); BLOOD NEGATIVE (NEGATIVE); CLARITY CLEAR (CLEAR); COLOR YELLOW (YELLOW); GLUCOSE NEGATIVE (NEGATIVE); KETONE NEGATIVE (NEGATIVE); LEUKO ESTERASE 1+ (NEGATIVE); NITRITE NEGATIVE (NEGATIVE); UROBILINOGEN 0.2 E.U./dl (0.2-1.0)
[2017-06-08 19:54] LABS: BACTERIA 4+; WBC 31-40 wbc/hpf (0-5)
[2017-06-08 20:00] VITALS: BP 146/74
[2017-06-09] VITALS: BP 114/73; BP 132/86; BP 136/92
[2017-06-09 07:08] LABS: BASO # 0.1 10*3/uL (0.0-0.1); BASO % 0.5 % (0.0-1.0); EOS # 0.3 10*3/uL (0.0-0.4); EOS % 2.8 % (1.0-4.0); HEMATOCRIT 36.4 % (37.0-47.0); HEMOGLOBIN 11.9 g/dl (12.0-16.0); LYMPH # 1.9 10*3/uL (1.3-4.4); LYMPH % 20.4 % (27.0-41.0); MEAN CELL VOLUME 89.9 fl (81.0-99.0); MEAN CORPUSCULAR HGB 29.4 pg (27.0-31.0); MEAN CORPUSCULAR HGB CONC 32.7 g/dl (33.0-37.0); MEAN PLATELET VOLUME 10.5 fl (9.6-12.3); MONO # 0.8 10*3/uL (0.1-1.0); MONO % 8.4 % (3.0-9.0); NEUT # 6.2 10*3/uL (2.3-7.9); NEUT % 67.5 % (47.0-73.0); PLATELET COUNT AUTOMATED 169 10*3/uL (130-400); RED BLOOD COUNT 4.05 10*6/uL (4.10-5.10); RED CELL DISTRI WIDTH 13.6 % (0-14.5); WHITE BLOOD COUNT 9.2 10*3/uL (4.8-10.8)
[2017-06-09 07:26] LABS: ALBUMIN 2.9 gm/dl (3.1-4.5); CREATININE 1.42 mg/dL (0.55-1.02); POTASSIUM 3.8 mmol/L (3.5-5.1); TOTAL PROTEIN 6.5 gm/dL (6.4-8.2)
[2017-06-09 08:00] VITALS: BP 111/54
[2017-06-09 12:00] VITALS: BP 116/64
[2017-06-09] MEDS ORDERED: DOXYCYCLINE100 M3 PO (12:25)
== END 2017-06-09 11:30 | disposition home or self-care (01) | DRG 683 ==
LOC: ED 01:50 → 4E 02:58 → EDHOLD 02:58 → 4E 03:31
PROVIDERS: Emergency Medicine; Family Medicine; Internal Medicine; Student in an Organized Health Care Education/Training Program
PROC: 3E073KZ Introduction of Other Diagnostic Substance into Coronary Artery, Percutaneous Approach (ICD-10-PCS; principal; 2017-06-08)
PROC: 4A02XM4 Measurement of Cardiac Total Activity, External Approach (ICD-10-PCS; principal; 2017-06-08)
DX: N17.0 Acute kidney failure with tubular necrosis (principal); D68.59 Other primary thrombophilia; E11.65 Type 2 diabetes mellitus with hyperglycemia; E11.22 Type 2 diabetes mellitus with diabetic chronic kidney disease; E11.51 Type 2 diabetes mellitus with diabetic peripheral angiopathy without gangrene; I48.2 Chronic atrial fibrillation; E83.41 Hypermagnesemia; G25.81 Restless legs syndrome; I50.32 Chronic diastolic (congestive) heart failure; I13.0 Hypertensive heart and chronic kidney disease with heart failure and stage 1 through stage 4 chronic kidney disease, or unspecified chronic kidney disease; N39.0 Urinary tract infection, site not specified; R07.9 Chest pain, unspecified; Z66 Do not resuscitate; N18.4 Chronic kidney disease, stage 4 (severe); Z51.5 Encounter for palliative care; E78.5 Hyperlipidemia, unspecified; M26.609 Unspecified temporomandibular joint disorder, unspecified side; J30.2 Other seasonal allergic rhinitis; I34.0 Nonrheumatic mitral (valve) insufficiency; D72.829 Elevated white blood cell count, unspecified; J44.9 Chronic obstructive pulmonary disease, unspecified; E03.9 Hypothyroidism, unspecified; M19.90 Unspecified osteoarthritis, unspecified site; K21.9 Gastro-esophageal reflux disease without esophagitis; M10.9 Gout, unspecified; E66.9 Obesity, unspecified; Z68.34 Body mass index [BMI] 34.0-34.9, adult; Z71.3 Dietary counseling and surveillance; Z90.710 Acquired absence of both cervix and uterus; Z90.49 Acquired absence of other specified parts of digestive tract; Z98.42 Cataract extraction status, left eye; Z98.41 Cataract extraction status, right eye; Z80.6 Family history of leukemia; Z83.79 Family history of other diseases of the digestive system; Z88.0 Allergy status to penicillin; Z88.2 Allergy status to sulfonamides; Z91.041 Radiographic dye allergy status; Z79.899 Other long term (current) drug therapy; Z79.01 Long term (current) use of anticoagulants

== ENCOUNTER 2018-01-27 17:45 | Inpatient (IN) | payer MEDICARE, OTHER ==
[~2018-01-27] VITALS: Ht 160 cm; Wt 79.8 kg
--- NOTE | ~2018-01-27 | CON ---
[place], [place] REPORT OF CONSULTATION NAME: ISHAN FINLEY [facility] #: [id number] UNIT #: [id number] ROOM: 508 DOCTOR: NAKITA TAYLOR MD BIRTHDATE: [birth year] DOS: 01/28/2018 CARDIOLOGY CONSULTATION REASON FOR CONSULTATION: Chest pain, elevated troponin. CLINICAL HISTORY: The patient is an 82-year-old patient with history of atrial fibrillation, valvular heart disease, diabetes, presented to the Emergency Room with left-sided chest pain with radiation to the left arm. The pain started about a week ago, which she describes as a sharp pain in the left side of the chest. This started about a week ago. On the day of her admission, the pain got more intense, which occurred while she is walking in her living room. She also has some shortness of breath and fatigue for the past couple of months. Her activity is somewhat limited recently due to her shortness of breath. She has history of hypertension, chronic kidney disease and diabetes 2. She had a stress test and echo in June 2017. Stress test, however, unremarkable. Echo showed mild mitral and tricuspid regurgitation with EF of 65%. Cardiology consulted for further recommendations. At the time of my examination, the patient is alert, oriented, no acute distress. Denies any chest pain and breathing is much better. No palpitation, no dizziness, no orthopnea, no PND, no fever and chills, no nausea or vomiting, no bladder or bowel symptoms, no neurologic symptoms. REVIEW OF SYSTEMS: Review of the 10-system negative except as mentioned above. PAST MEDICAL HISTORY: 1. Atrial fibrillation. 2. Chronic kidney disease. 3. COPD. 4. Hypertension. 5. Acid reflux. 6. Gout. 7. Hypercoagulable state. 8. Anemia. 9. Mild heart disease. 10. Non-morbid obesity. 11. Peripheral vascular disease. 12. Restless legs. PAST SURGICAL HISTORY: Repair of the hiatal hernia, cataract surgery, cholecystectomy, polypectomy, hysterectomy and ventral hernia repair. SOCIAL HISTORY: The patient does not smoke or drink. Does not use illicit drugs. FAMILY HISTORY: Father in his 40s from cirrhosis. Mother in her 40s from leukemia. ALLERGIES: The patient is allergic to PENICILLIN, BACTRIM AND IVP DYE, which [place], [place] REPORT OF CONSULTATION NAME: ISHAN FINLEY UNIT #: [id number] ROOM: 508 DOCTOR: NAKITA TAYLOR MD BIRTHDATE: [birth year] causes periorbital edema. HOME MEDICATIONS: Reviewed. PHYSICAL EXAMINATION: VITAL SIGNS: Blood pressure 131/76, pulse 70, respiration 18, weight 79.8 kg, BMI 31.2. EKG: Atrial fibrillation with lateral nonspecific ST-T changes. LABORATORY DATA: Hemoglobin 9.0, white count 9.2 thousand, platelet 214,000. Potassium 4.1, BUN 27, creatinine 1.65, total cholesterol 136, LDL 62, HDL 37, triglycerides 185. BNP 33,957. The troponins are 0.067, 0.072, 0.073. Imaging studies and echo stress test from June 2013 reviewed. IMPRESSION: 1. Borderline elevation of troponin, possibly due to chronic kidney disease versus NSTEMI. 2. Intermittent chest pain, stable. 3. Chronic atrial fibrillation with controlled rate. 4. Acute on chronic diastolic heart failure. 5. Valvular heart disease with mild mitral and tricuspid regurgitation. 6. Diabetes type 2. 7. Left ventricular hypertrophy. RECOMMENDATIONS: Currently, she denies any chest pain and breathing is much better. Continue her aspirin and beta blockers. The patient was not on statins possibly due to her age, consider low dose statins. Continue Eliquis for atrial fibrillation. The patient's code status is DNR-CC. Risk, benefits, and complications of the cardiac catheterization, angioplasty stent and possible bypass surgery were discussed and the patient would like to stay with the medical therapy at this time and she will think about invasive cardiac testing. There is no family at bedside. Further recommendation based on her symptoms and her hospital course. [place], [place] REPORT OF CONSULTATION NAME: ISHAN FINLEY UNIT #: [id number] ROOM: 508 DOCTOR: NAKITA TAYLOR MD BIRTHDATE: [birth year] NAKITA TAYLOR MD CM:CONSTR:REPORT OF CONSULTATION 2220 01/29/18 0011 interface
--- NOTE | ~2018-01-27 | EKG ---
[place], [place] ELECTROCARDIOGRAM REPORT NAME: ISHAN FINLEY UNIT #: [id number] ROOM: 508 DOCTOR: ILIANA DRAFT REPORT BIRTHDATE: [birth year] [facility] Test Date: 2018-01-27 Test Time: 20:49:02 Pat Name: ISHAN FINLEY Department: 5E Room: 508 Gender: F [employer]: MARE : 1935 Requested By: MICK LEARY Order Number: [id number] Reading MD: Apollo Morgan MD Measurements Intervals [place] Rate: 76 P: [place]: QRS: -38 QRSD: 107 T: -49 QT: 418 QTc: 471 Interpretive Statements Atrial fibrillation Left axis deviation Anteroseptal infarct, old Borderline repolarization abnormality No previous ECG available for comparison Electronically Signed On 01-31-2018 11:08:19 PST by Apollo Morgan MD CM:EKGRPT:ELECTROCARDIOGRAM REPORT [id number] MICK BARRIENTOS DRAFT REPORT MICK LEARY M.D.
--- NOTE | ~2018-01-27 | EKG ---
[place], [place] ELECTROCARDIOGRAM REPORT NAME: ISHAN FINLEY UNIT #: [id number] ROOM: 508 DOCTOR: ILIANA DRAFT REPORT BIRTHDATE: [birth year] [facility] Test Date: 2018-01-27 Test Time: 23:40:36 Pat Name: ISHAN FINLEY Department: 5E Room: 508 Gender: F Manager Cardiac: Sebastian Tobias : 1935 Requested By: MICK LEARY Order Number: [id number] Reading MD: Apollo Morgan MD Measurements Intervals [place] Rate: 70 P: [place]: QRS: -39 QRSD: 99 T: -24 QT: 426 QTc: 460 Interpretive Statements Atrial fibrillation Left axis deviation Low voltage, precordial leads Anteroseptal infarct, old Borderline T abnormalities, inferior leads No previous ECG available for comparison Electronically Signed On 01-31-2018 11:09:01 PST by Apollo Morgan MD CM:EKGRPT:ELECTROCARDIOGRAM REPORT 1109 MICK BARRIENTOS DRAFT REPORT MICK LEARY M.D.
--- NOTE | ~2018-01-27 | EKG ---
[place], [place] ELECTROCARDIOGRAM REPORT NAME: ISHAN FINLEY UNIT #: [id number] ROOM: 508 DOCTOR: ILIANA DRAFT REPORT BIRTHDATE: [birth year] [facility] Test Date: 2018-01-27 Test Time: 17:45:37 Pat Name: ISHAN FINLEY Department: 5E Room: 508 Gender: F Die [employer]ger: Sebastian Tobias : 1935 Requested By: MICK LEARY Order Number: [id number] Reading MD: Apollo Morgan MD Measurements Intervals [place] Rate: 102 P: 82 DC: 133 QRS: -46 QRSD: 94 T: 92 QT: 347 QTc: 453 Interpretive Statements Sinus tachycardia with irregular rate LAD, consider left anterior fascicular block Anteroseptal infarct, old Nonspecific T abnormalities, lateral leads No previous ECG available for comparison Electronically Signed On 01-31-2018 11:07:59 PST by Apollo Morgan MD CM:EKGRPT:ELECTROCARDIOGRAM REPORT [id number] MICK BARRIENTOS DRAFT REPORT MICK LEARY M.D.
[~2018-01-27 17:45] MED LIST changes: +JANUMET XR 50-1 EACH PO
[2018-01-27 17:46] VITALS: BP 146/90
[2018-01-27 18:04] VITALS: BP 165/81
[2018-01-27 18:10] LABS: BASO % 0.4 % (0.0-1.0); EOS # 0.2 10*3/uL (0.0-0.4); EOS % 2.2 % (1.0-4.0); HEMATOCRIT 38.5 % (37.0-47.0); HEMOGLOBIN 12.1 g/dl (12.0-16.0); LYMPH # 1.8 10*3/uL (1.3-4.4); MEAN CELL VOLUME 83.9 fl (81.0-99.0); MEAN CORPUSCULAR HGB 26.4 pg (27.0-31.0); MEAN CORPUSCULAR HGB CONC 31.4 g/dl (33.0-37.0); MEAN PLATELET VOLUME 10.7 fl (9.6-12.3); MONO # 0.7 10*3/uL (0.1-1.0); MONO % 7.3 % (3.0-9.0); NEUT # 6.7 10*3/uL (2.3-7.9); NEUT % 70.7 % (47.0-73.0); PLATELET COUNT AUTOMATED 264 10*3/uL (130-400); RED BLOOD COUNT 4.59 10*6/uL (4.10-5.10); WHITE BLOOD COUNT 9.5 10*3/uL (4.8-10.8)
[2018-01-27 18:20] LABS: ACT PARTIAL THROMBO TIME 24.4 SECONDS (20.8-31.5)
[2018-01-27 18:25] VITALS: BP 134/69
[2018-01-27 18:27] LABS: ALBUMIN 3.5 gm/dl (3.1-4.5); CREATININE 1.67 mg/dL (0.55-1.02); POTASSIUM 4.9 mmol/L (3.5-5.1); TOTAL PROTEIN 7.7 gm/dL (6.4-8.2)
[2018-01-27 18:29] LABS: TROPONIN I 0.073 ng/ml (<0.045)
[2018-01-27 19:00] VITALS: BP 140/78
[2018-01-27 19:45] VITALS: BP 138/80
[2018-01-27] MEDS ORDERED: JANUVIA25 MG PO (19:56)
[2018-01-28] VITALS: BP 139/87
[2018-01-28 06:18] LABS: BASO # 0.1 10*3/uL (0.0-0.1); BASO % 0.5 % (0.0-1.0); EOS # 0.2 10*3/uL (0.0-0.4); EOS % 2.6 % (1.0-4.0); HEMATOCRIT 34.7 % (37.0-47.0); LYMPH # 2.3 10*3/uL (1.3-4.4); LYMPH % 24.2 % (27.0-41.0); MEAN CELL VOLUME 83.8 fl (81.0-99.0); MEAN CORPUSCULAR HGB 26.6 pg (27.0-31.0); MEAN CORPUSCULAR HGB CONC 31.7 g/dl (33.0-37.0); MEAN PLATELET VOLUME 10.5 fl (9.6-12.3); MONO # 0.7 10*3/uL (0.1-1.0); MONO % 7.7 % (3.0-9.0); NEUT % 64.6 % (47.0-73.0); PLATELET COUNT AUTOMATED 214 10*3/uL (130-400); RED BLOOD COUNT 4.14 10*6/uL (4.10-5.10); RED CELL DISTRI WIDTH 16.7 % (0-14.5); WHITE BLOOD COUNT 9.3 10*3/uL (4.8-10.8)
[2018-01-28 06:48] LABS: ALBUMIN 2.9 gm/dl (3.1-4.5); CREATININE 1.65 mg/dL (0.55-1.02); FREE T4 1.06 ng/dl (0.76-1.46); PHOSPHOROUS 3.6 mg/dL (2.5-4.9); POTASSIUM 4.1 mmol/L (3.5-5.1); TOTAL PROTEIN 6.3 gm/dL (6.4-8.2)
[2018-01-28 06:52] LABS: THYROID STIM HORMONE (HS) 2.69 uIU/ml (0.358-4.75)
[2018-01-28 08:00] VITALS: BP 112/43
[2018-01-28 09:08] LABS: BILIRUBIN NEGATIVE (NEGATIVE); BLOOD NEGATIVE (NEGATIVE); CLARITY CLOUDY (CLEAR); COLOR YELLOW (YELLOW); GLUCOSE TRACE (NEGATIVE); KETONE TRACE (NEGATIVE); LEUKO ESTERASE 1+ (NEGATIVE); NITRITE POSITIVE (NEGATIVE); PH 5.5 (5.0-9.0); SPECIFIC GRAVITY >= 1.030 (1.005-1.030); UROBILINOGEN 0.2 E.U./dl (0.2-1.0)
[2018-01-28 09:20] LABS: BACTERIA 4+; WBC TNTC wbc/hpf (0-5)
[2018-01-28 12:00] VITALS: BP 131/76
[2018-01-28 16:00] VITALS: BP 135/69
[2018-01-28 20:00] VITALS: BP 138/80
[2018-01-29] VITALS: BP 133/70
[2018-01-29 06:17] LABS: BASO # 0.1 10*3/uL (0.0-0.1); BASO % 0.5 % (0.0-1.0); EOS # 0.2 10*3/uL (0.0-0.4); HEMATOCRIT 36.5 % (37.0-47.0); HEMOGLOBIN 11.1 g/dl (12.0-16.0); LYMPH # 2.1 10*3/uL (1.3-4.4); LYMPH % 20.9 % (27.0-41.0); MEAN CELL VOLUME 83.3 fl (81.0-99.0); MEAN CORPUSCULAR HGB 25.3 pg (27.0-31.0); MEAN CORPUSCULAR HGB CONC 30.4 g/dl (33.0-37.0); MEAN PLATELET VOLUME 10.6 fl (9.6-12.3); MONO # 0.7 10*3/uL (0.1-1.0); MONO % 7.1 % (3.0-9.0); NEUT # 6.8 10*3/uL (2.3-7.9); NEUT % 69.1 % (47.0-73.0); PLATELET COUNT AUTOMATED 223 10*3/uL (130-400); RED BLOOD COUNT 4.38 10*6/uL (4.10-5.10); RED CELL DISTRI WIDTH 16.6 % (0-14.5); WHITE BLOOD COUNT 9.8 10*3/uL (4.8-10.8)
[2018-01-29 06:51] LABS: CREATININE 1.77 mg/dL (0.55-1.02); PHOSPHOROUS 3.7 mg/dL (2.5-4.9)
[2018-01-29] MEDS ORDERED: JANUVIA50 MG PO (10:42)
[2018-01-29] MEDS ORDERED: ATORVASTATIN CA20 M1 PO (10:42)
[2018-01-29] MEDS ORDERED: ASPIRIN ADULT L81 M2 PO (10:42)
[2018-01-29] MEDS ORDERED: DOXYCYCLINE100 M3 PO (10:51)
== END 2018-01-29 13:05 | disposition home or self-care (01) | DRG 291 ==
LOC: ED 17:45 → 5E 19:03 → EDHOLD 19:03 → 5E 19:31
PROVIDERS: Emergency Medicine; Family Medicine; Internal Medicine
DX: I13.0 Hypertensive heart and chronic kidney disease with heart failure and stage 1 through stage 4 chronic kidney disease, or unspecified chronic kidney disease (principal); I50.33 Acute on chronic diastolic (congestive) heart failure; N18.4 Chronic kidney disease, stage 4 (severe); R74.8 Abnormal levels of other serum enzymes; R06.09 Other forms of dyspnea; J44.9 Chronic obstructive pulmonary disease, unspecified; K21.9 Gastro-esophageal reflux disease without esophagitis; M10.9 Gout, unspecified; R10.9 Unspecified abdominal pain; I08.1 Rheumatic disorders of both mitral and tricuspid valves; R30.0 Dysuria; Z66 Do not resuscitate; Z51.5 Encounter for palliative care; M19.90 Unspecified osteoarthritis, unspecified site; G25.81 Restless legs syndrome; E11.40 Type 2 diabetes mellitus with diabetic neuropathy, unspecified; R00.0 Tachycardia, unspecified; I48.2 Chronic atrial fibrillation; E03.9 Hypothyroidism, unspecified; E11.51 Type 2 diabetes mellitus with diabetic peripheral angiopathy without gangrene; E66.9 Obesity, unspecified; Z88.0 Allergy status to penicillin; Z88.2 Allergy status to sulfonamides; Z91.041 Radiographic dye allergy status; Z90.49 Acquired absence of other specified parts of digestive tract; Z90.710 Acquired absence of both cervix and uterus; Z83.79 Family history of other diseases of the digestive system; Z80.6 Family history of leukemia; Z83.3 Family history of diabetes mellitus; Z82.49 Family history of ischemic heart disease and other diseases of the circulatory system; Z98.42 Cataract extraction status, left eye; Z98.41 Cataract extraction status, right eye; Z79.899 Other long term (current) drug therapy; Z79.84 Long term (current) use of oral hypoglycemic drugs; Z68.31 Body mass index [BMI] 31.0-31.9, adult

== ENCOUNTER 2018-03-20 18:39 | Emergency (ER) | payer MEDICARE, OTHER ==
[~2018-03-20] VITALS: Ht 165.1 cm; Wt 78.0 kg
[~2018-03-20 18:39] MED LIST changes: +ASPIRIN ADULT L81 M2 PO; +ATORVASTATIN CA20 M1 PO; +JANUVIA50 MG PO
[2018-03-20 18:41] VITALS: BP 144/78
== END 2018-03-20 20:00 | disposition home or self-care (01) ==
LOC: ED 18:39
DX: S00.83XA Contusion of other part of head, initial encounter (principal); I13.0 Hypertensive heart and chronic kidney disease with heart failure and stage 1 through stage 4 chronic kidney disease, or unspecified chronic kidney disease; E11.22 Type 2 diabetes mellitus with diabetic chronic kidney disease; N18.4 Chronic kidney disease, stage 4 (severe); E66.9 Obesity, unspecified; M19.90 Unspecified osteoarthritis, unspecified site; I48.91 Unspecified atrial fibrillation; K21.9 Gastro-esophageal reflux disease without esophagitis; E03.9 Hypothyroidism, unspecified; M10.9 Gout, unspecified; E11.40 Type 2 diabetes mellitus with diabetic neuropathy, unspecified; Z88.0 Allergy status to penicillin; Z88.2 Allergy status to sulfonamides; Z91.041 Radiographic dye allergy status; Z79.899 Other long term (current) drug therapy; Z68.34 Body mass index [BMI] 34.0-34.9, adult; W00.0XXA Fall on same level due to ice and snow, initial encounter; Y93.89 Activity, other specified; Y92.89 Other specified places as the place of occurrence of the external cause; Y99.8 Other external cause status

== ENCOUNTER → 2018-04-25 | Outpatient (CLI) | payer MEDICARE, OTHER ==
[~2018-04-25] MED LIST changes: +LEVEMIR100 UNIT/1 SQ; +LEVOXYL100 MCG PO; +NOVOLOG FL100 UNIT/2 SQ
== END | disposition home or self-care (01) ==
LOC: RAD 13:38
DX: M16.11 Unilateral primary osteoarthritis, right hip (principal); M25.552 Pain in left hip

== ENCOUNTER → 2018-06-23 | Outpatient (CLI) | payer MEDICARE, OTHER ==
[2018-06-23 12:27] LABS: CREATININE 1.5 mg/dL (0.55-1.02); POTASSIUM 4.9 mmol/L (3.5-5.1)
[2018-06-23 12:33] LABS: THYROID STIM HORMONE (HS) 2.64 uIU/ml (0.358-4.75)
[2018-06-24 07:04] LABS: CREATININE,URINE 199.3 mg/dL (Not Estab.)
== END | disposition home or self-care (01) ==
LOC: LAB 11:04
PROVIDERS: Family Medicine
DX: E11.9 Type 2 diabetes mellitus without complications (principal)

== ENCOUNTER → 2018-09-14 | Outpatient (CLI) | payer MEDICARE, OTHER ==
[2018-09-14 13:44] LABS: BASO # 0.1 10*3/uL (0.0-0.1); BASO % 0.6 % (0.0-1.0); EOS # 0.4 10*3/uL (0.0-0.4); EOS % 3.5 % (1.0-4.0); HEMATOCRIT 37.3 % (37.0-47.0); HEMOGLOBIN 11.2 g/dl (12.0-16.0); LYMPH # 1.3 10*3/uL (1.3-4.4); LYMPH % 12.1 % (27.0-41.0); MEAN CELL VOLUME 83.6 fl (81.0-99.0); MEAN CORPUSCULAR HGB 25.1 pg (27.0-31.0); MONO # 0.7 10*3/uL (0.1-1.0); MONO % 7.1 % (3.0-9.0); NEUT # 7.9 10*3/uL (2.3-7.9); NEUT % 76.1 % (47.0-73.0); PLATELET COUNT AUTOMATED 240 10*3/uL (130-400); RED BLOOD COUNT 4.46 10*6/uL (4.10-5.10); WHITE BLOOD COUNT 10.4 10*3/uL (4.8-10.8)
[2018-09-14 13:52] LABS: ALBUMIN 3.2 gm/dl (3.1-4.5); CREATININE 1.57 mg/dL (0.55-1.02); POTASSIUM 4.5 mmol/L (3.5-5.1); TOTAL PROTEIN 7.6 gm/dL (6.4-8.2)
== END | disposition home or self-care (01) ==
LOC: LAB 12:38
PROVIDERS: Family Medicine
DX: M40.204 Unspecified kyphosis, thoracic region (principal); R06.02 Shortness of breath; R05 Cough; I50.20 Unspecified systolic (congestive) heart failure; M79.89 Other specified soft tissue disorders

== ENCOUNTER → 2019-03-14 | Outpatient (CLI) | payer MEDICARE, OTHER ==
[2019-03-14 11:35] LABS: ALBUMIN 3.3 gm/dl (3.1-4.5); CREATININE 1.98 mg/dL (0.55-1.02); POTASSIUM 4.5 mmol/L (3.5-5.1); TOTAL PROTEIN 7.8 gm/dL (6.4-8.2)
== END | disposition home or self-care (01) ==
LOC: RAD 10:50 → LAB 10:50
PROVIDERS: Orthopaedic Surgery
DX: M51.36 Other intervertebral disc degeneration, lumbar region (principal)

== ENCOUNTER → 2019-06-26 | Outpatient (CLI) | payer MEDICARE, OTHER ==
[2019-06-26 10:32] LABS: BASO % 0.4 % (0.0-1.0); EOS # 0.3 10*3/uL (0.0-0.4); EOS % 2.4 % (1.0-4.0); HEMATOCRIT 39.4 % (37.0-47.0); LYMPH # 1.5 10*3/uL (1.3-4.4); LYMPH % 13.6 % (27.0-41.0); MEAN CELL VOLUME 86.2 fl (81.0-99.0); MEAN CORPUSCULAR HGB 26.5 pg (27.0-31.0); MEAN CORPUSCULAR HGB CONC 30.7 g/dl (33.0-37.0); MEAN PLATELET VOLUME 10.4 fl (9.6-12.3); MONO # 0.7 10*3/uL (0.1-1.0); MONO % 6.8 % (3.0-9.0); NEUT # 8.2 10*3/uL (2.3-7.9); NEUT % 76.4 % (47.0-73.0); PLATELET COUNT AUTOMATED 263 10*3/uL (130-400); RED BLOOD COUNT 4.57 10*6/uL (4.10-5.10); RED CELL DISTRI WIDTH 15.7 % (0-14.5); WHITE BLOOD COUNT 10.7 10*3/uL (4.8-10.8)
[2019-06-26 10:33] LABS: CREATININE 2.22 mg/dL (0.55-1.02); POTASSIUM 3.8 mmol/L (3.5-5.1)
[2019-06-26 10:35] LABS: BILIRUBIN NEGATIVE (NEGATIVE); BLOOD NEGATIVE (NEGATIVE); CLARITY SL CLOUDY (CLEAR); COLOR YELLOW (YELLOW); GLUCOSE NEGATIVE (NEGATIVE); KETONE NEGATIVE (NEGATIVE); LEUKO ESTERASE TRACE (NEGATIVE); NITRITE NEGATIVE (NEGATIVE); SPECIFIC GRAVITY 1.025 (1.005-1.030); UROBILINOGEN 0.2 E.U./dl (0.2-1.0)
[2019-06-26 10:36] LABS: BACTERIA 4+; WBC 21-30 wbc/hpf (0-5)
[2019-06-26 10:46] LABS: FERRITIN 14.5 ng/mL (10.0-291.0); VITAMIN D, 25-HYDROXY 33.5 ng/mL (30-100)
[2019-06-26 10:47] LABS: PTH INTACT 89.6 pg/mL (18.5-88.0)
== END | disposition home or self-care (01) ==
LOC: LAB 09:31
PROVIDERS: Internal Medicine Nephrology
DX: N18.3 Chronic kidney disease, stage 3 (moderate) (principal); N25.81 Secondary hyperparathyroidism of renal origin; E11.29 Type 2 diabetes mellitus with other diabetic kidney complication; D63.1 Anemia in chronic kidney disease; Z79.899 Other long term (current) drug therapy

== ENCOUNTER → 2020-04-18 | Outpatient (CLI) | payer MEDICARE, OTHER ==
[2020-04-18 15:25] LABS: BASO % 0.4 % (0.0-1.0); EOS # 0.2 10*3/uL (0.0-0.4); EOS % 2.7 % (1.0-4.0); HEMATOCRIT 42.3 % (37.0-47.0); LYMPH # 1.6 10*3/uL (1.3-4.4); LYMPH % 18.2 % (27.0-41.0); MEAN CELL VOLUME 87.8 fl (81.0-99.0); MEAN CORPUSCULAR HGB 27.4 pg (27.0-31.0); MEAN CORPUSCULAR HGB CONC 31.2 g/dl (33.0-37.0); MEAN PLATELET VOLUME 10.2 fl (9.6-12.3); MONO # 0.7 10*3/uL (0.1-1.0); MONO % 7.4 % (3.0-9.0); NEUT # 6.3 10*3/uL (2.3-7.9); PLATELET COUNT AUTOMATED 337 10*3/uL (130-400); RED BLOOD COUNT 4.82 10*6/uL (4.10-5.10); RED CELL DISTRI WIDTH 16.6 % (0-14.5); WHITE BLOOD COUNT 8.9 10*3/uL (4.8-10.8)
[2020-04-18 15:26] LABS: ALBUMIN 3.5 gm/dl (3.1-4.5); CREATININE 1.42 mg/dL (0.55-1.02); POTASSIUM 4.9 mmol/L (3.5-5.1)
[2020-04-18 16:28] LABS: FERRITIN 16.9 ng/mL (10.0-291.0); PTH INTACT 111.2 pg/mL (18.5-88.0); VITAMIN D, 25-HYDROXY 46.4 ng/mL (30-100)
== END | disposition home or self-care (01) ==
LOC: LAB 14:37
PROVIDERS: ATTEND Internal Medicine Nephrology
DX: E11.29 Type 2 diabetes mellitus with other diabetic kidney complication (principal); N25.81 Secondary hyperparathyroidism of renal origin; N18.4 Chronic kidney disease, stage 4 (severe); E11.22 Type 2 diabetes mellitus with diabetic chronic kidney disease; D63.1 Anemia in chronic kidney disease; Z79.899 Other long term (current) drug therapy

== ENCOUNTER → 2020-04-19 | Outpatient (CLI) | payer MEDICARE, OTHER ==
[2020-04-19 13:45] LABS: BILIRUBIN Negative (Negative); BLOOD Negative (Negative); CLARITY Cloudy (Clear); COLOR Yellow (Yellow); GLUCOSE Negative (Negative); KETONE Negative (Negative); LEUKO ESTERASE 1+ (Negative); NITRITE Negative (Negative); SPECIFIC GRAVITY 1.015 (1.001-1.030)
[2020-04-19 13:51] LABS: URINE CREATININE RANDOM 70.9 mg/dL
[2020-04-19 13:55] LABS: WBC 16-20 wbc/hpf (0-5)
[2020-04-19 13:56] LABS: BACTERIA 4+
== END | disposition home or self-care (01) ==
LOC: LAB 13:29
PROVIDERS: ATTEND Internal Medicine Nephrology
DX: N18.4 Chronic kidney disease, stage 4 (severe) (principal)

== ENCOUNTER 2020-05-22 12:15 | Emergency (ER) | payer MEDICARE, OTHER ==
[~2020-05-22] VITALS: Ht 162.5 cm; Wt 60.8 kg
[2020-05-22 12:32] VITALS: BP 126/80
[2020-05-22 13:59] LABS: BASO % 0.3 % (0.0-1.0); EOS # 0.3 10*3/uL (0.0-0.4); EOS % 3.2 % (1.0-4.0); HEMATOCRIT 38.1 % (37.0-47.0); LYMPH # 1.4 10*3/uL (1.3-4.4); LYMPH % 15.5 % (27.0-41.0); MEAN CELL VOLUME 87.8 fl (81.0-99.0); MEAN CORPUSCULAR HGB 27.2 pg (27.0-31.0); MEAN PLATELET VOLUME 9.5 fl (9.6-12.3); MONO # 0.8 10*3/uL (0.1-1.0); MONO % 8.7 % (3.0-9.0); NEUT # 6.4 10*3/uL (2.3-7.9); NEUT % 71.1 % (47.0-73.0); PLATELET COUNT AUTOMATED 236 10*3/uL (130-400); RED BLOOD COUNT 4.34 10*6/uL (4.10-5.10); RED CELL DISTRI WIDTH 15.9 % (0-14.5)
[2020-05-22 14:13] LABS: ALBUMIN 3.2 gm/dl (3.1-4.5); ALKALINE PHOSPHATASE 111 U/L (45-117); BUN 16 mg/dl (7-24); CHLORIDE 108 mmol/L (98-107); CREATININE 1.05 mg/dL (0.55-1.02); POTASSIUM 3.9 mmol/L (3.5-5.1); SGOT/AST 24 IU/L (3-35); SGPT/ALT 21 U/L (12-78); SODIUM 141 mmol/L (136-145); TOTAL PROTEIN 7.1 gm/dL (6.4-8.2)
== END 2020-05-22 16:36 | disposition home or self-care (01) ==
LOC: ED 12:15
PROVIDERS: Nurse Practitioner
DX: M25.521 Pain in right elbow (principal); Z88.0 Allergy status to penicillin; Z88.8 Allergy status to other drugs, medicaments and biological substances; Z91.041 Radiographic dye allergy status; Z79.899 Other long term (current) drug therapy; Z79.4 Long term (current) use of insulin; Z98.890 Other specified postprocedural states; Z90.49 Acquired absence of other specified parts of digestive tract; Z95.818 Presence of other cardiac implants and grafts; W19.XXXA Unspecified fall, initial encounter; Y93.89 Activity, other specified; Y92.89 Other specified places as the place of occurrence of the external cause; Y99.8 Other external cause status

== ENCOUNTER → 2020-06-06 | Outpatient (CLI) | payer MEDICARE, OTHER | END | disposition home or self-care (01) | LOC: US 13:23 | PROVIDERS: ATTEND Family Medicine | DX: I73.9 Peripheral vascular disease, unspecified (principal) ==

== ENCOUNTER → 2020-06-30 | Day surgery (SDC) | payer MEDICARE, OTHER ==
[~2020-06-30] VITALS: Ht 165.1 cm; Wt 62.6 kg
[2020-06-30 08:20] VITALS: BP 138/78
[2020-06-30 09:01] VITALS: BP 109/47
[2020-06-30 09:16] VITALS: BP 120/77
[2020-06-30 09:31] VITALS: BP 118/64
== END | disposition home or self-care (01) ==
LOC: SDC 06-26 10:15
PROVIDERS: ATTEND Surgery
DX: K59.00 Constipation, unspecified (principal); Z80.0 Family history of malignant neoplasm of digestive organs; K57.30 Diverticulosis of large intestine without perforation or abscess without bleeding; M81.0 Age-related osteoporosis without current pathological fracture; E03.9 Hypothyroidism, unspecified; M19.90 Unspecified osteoarthritis, unspecified site; I13.0 Hypertensive heart and chronic kidney disease with heart failure and stage 1 through stage 4 chronic kidney disease, or unspecified chronic kidney disease; I50.9 Heart failure, unspecified; E11.22 Type 2 diabetes mellitus with diabetic chronic kidney disease; E11.51 Type 2 diabetes mellitus with diabetic peripheral angiopathy without gangrene; N18.9 Chronic kidney disease, unspecified; I25.10 Atherosclerotic heart disease of native coronary artery without angina pectoris; G25.81 Restless legs syndrome; I48.91 Unspecified atrial fibrillation; Z90.710 Acquired absence of both cervix and uterus; Z79.899 Other long term (current) drug therapy

== ENCOUNTER → 2020-07-03 | Outpatient (CLI) | payer MEDICARE, OTHER | END | disposition home or self-care (01) | LOC: CT 13:59 | PROVIDERS: ATTEND Family Medicine | DX: N28.1 Cyst of kidney, acquired (principal); K59.00 Constipation, unspecified; R59.0 Localized enlarged lymph nodes; Z90.49 Acquired absence of other specified parts of digestive tract ==

== ENCOUNTER 2020-08-23 05:40 | Emergency (ER) | payer MEDICARE, OTHER ==
[~2020-08-23] VITALS: Wt 59.0 kg
[~2020-08-23 05:40] MED LIST changes: +AURYXIA210 MG PO; +CALCIUM + VITA1 EAC2 PO; +CALCIUM 600 +1 EAC7 PO; +CLARITIN10 MG PO; +CYMBALTA60 MG PO; +ELIQUIS2.5 M1 PO; +FUROSEMIDE40 MG PO; +LOSARTAN POTASS25 M1 PO; +ROPINIROLE HYDRO1 MG PO; +TOPROL XL25 MG PO; +TRULICITY0.75 MG/0. SC
[2020-08-23 05:43] VITALS: BP 108/68
== END 2020-08-23 07:00 | disposition home or self-care (01) ==
LOC: ED 05:40
DX: S01.81XA Laceration without foreign body of other part of head, initial encounter (principal); Z88.0 Allergy status to penicillin; Z91.041 Radiographic dye allergy status; Z79.2 Long term (current) use of antibiotics; Z79.899 Other long term (current) drug therapy; Z90.49 Acquired absence of other specified parts of digestive tract; Z90.711 Acquired absence of uterus with remaining cervical stump; Z98.890 Other specified postprocedural states; W19.XXXA Unspecified fall, initial encounter; Y93.89 Activity, other specified; Y92.89 Other specified places as the place of occurrence of the external cause; Y99.8 Other external cause status

== ENCOUNTER → 2020-09-02 | Outpatient (CLI) | payer MEDICARE, OTHER | LOC: WOUNDCARE 03:07 | PROVIDERS: ATTEND Nurse Practitioner | DX: S01.81XA Laceration without foreign body of other part of head, initial encounter (principal); E11.40 Type 2 diabetes mellitus with diabetic neuropathy, unspecified; E11.22 Type 2 diabetes mellitus with diabetic chronic kidney disease; N18.9 Chronic kidney disease, unspecified; E11.51 Type 2 diabetes mellitus with diabetic peripheral angiopathy without gangrene; J44.9 Chronic obstructive pulmonary disease, unspecified; I48.91 Unspecified atrial fibrillation; K21.9 Gastro-esophageal reflux disease without esophagitis; G25.81 Restless legs syndrome; Z98.49 Cataract extraction status, unspecified eye; Z90.49 Acquired absence of other specified parts of digestive tract; Z90.710 Acquired absence of both cervix and uterus; Z98.890 Other specified postprocedural states; Z79.84 Long term (current) use of oral hypoglycemic drugs; Z79.899 Other long term (current) drug therapy; X58.XXXA Exposure to other specified factors, initial encounter; Y93.89 Activity, other specified; Y92.89 Other specified places as the place of occurrence of the external cause; Y99.8 Other external cause status ==

== ENCOUNTER 2020-09-13 11:07 | Inpatient (IN) | payer MEDICARE, OTHER ==
[~2020-09-13] VITALS: Ht 152.4 cm; Wt 60.9 kg
[2020-09-13 11:15] VITALS: BP 135/69
[2020-09-13 11:57] LABS: BASO % 0.3 % (0.0-1.0); EOS # 0.1 10*3/uL (0.0-0.4); EOS % 0.6 % (1.0-4.0); HEMATOCRIT 39.4 % (37.0-47.0); LYMPH # 1.9 10*3/uL (1.3-4.4); LYMPH % 12.3 % (27.0-41.0); MEAN CELL VOLUME 91.2 fl (81.0-99.0); MEAN CORPUSCULAR HGB 28.2 pg (27.0-31.0); MEAN PLATELET VOLUME 9.9 fl (9.6-12.3); MONO # 1.1 10*3/uL (0.1-1.0); MONO % 7.5 % (3.0-9.0); NEUT % 78.8 % (47.0-73.0); PLATELET COUNT AUTOMATED 218 10*3/uL (130-400); RED BLOOD COUNT 4.32 10*6/uL (4.10-5.10); RED CELL DISTRI WIDTH 17.6 % (0-14.5); WHITE BLOOD COUNT 15.2 10*3/uL (4.8-10.8)
[2020-09-13 12:14] LABS: CREATININE 1.27 mg/dL (0.55-1.02); POTASSIUM 4.6 mmol/L (3.5-5.1)
[2020-09-13 12:20] LABS: TROPONIN I 0.163 ng/ml (<0.045)
[2020-09-13 14:00] VITALS: BP 142/82
[2020-09-13 16:00] VITALS: BP 139/87; BP 140/80
[2020-09-13 20:00] VITALS: BP 113/72
[2020-09-13 23:52] LABS: BILIRUBIN Negative (Negative); BLOOD Negative (Negative); CLARITY Clear (Clear); COLOR Yellow (Yellow); GLUCOSE Negative (Negative); KETONE Negative (Negative); LEUKO ESTERASE Trace (Negative); NITRITE Negative (Negative); PH 6.5 (4.5-8.0); SPECIFIC GRAVITY 1.015 (1.001-1.030)
[2020-09-14] VITALS: BP 131/69
[2020-09-14 00:17] LABS: BACTERIA 1+
[2020-09-14 06:19] LABS: BASO # 0.1 10*3/uL (0.0-0.1); BASO % 0.4 % (0.0-1.0); EOS # 0.2 10*3/uL (0.0-0.4); EOS % 1.1 % (1.0-4.0); HEMATOCRIT 39.6 % (37.0-47.0); LYMPH # 2.1 10*3/uL (1.3-4.4); LYMPH % 16.3 % (27.0-41.0); MEAN CELL VOLUME 89.8 fl (81.0-99.0); MEAN CORPUSCULAR HGB 27.7 pg (27.0-31.0); MEAN CORPUSCULAR HGB CONC 30.8 g/dl (33.0-37.0); MEAN PLATELET VOLUME 9.9 fl (9.6-12.3); NEUT # 9.6 10*3/uL (2.3-7.9); NEUT % 73.7 % (47.0-73.0); PLATELET COUNT AUTOMATED 222 10*3/uL (130-400); RED BLOOD COUNT 4.41 10*6/uL (4.10-5.10); RED CELL DISTRI WIDTH 17.1 % (0-14.5); WHITE BLOOD COUNT 13.1 10*3/uL (4.8-10.8)
[2020-09-14 06:27] LABS: ACT PARTIAL THROMBO TIME 27.2 SECONDS (20.0-32.1)
[2020-09-14 06:55] LABS: POTASSIUM 3.9 mmol/L (3.5-5.1)
[2020-09-14 07:15] LABS: ALBUMIN 2.9 gm/dl (3.1-4.5); CREATININE 1.07 mg/dL (0.55-1.02); THYROID STIM HORMONE (HS) 2.95 uIU/ml (0.358-4.75); TOTAL PROTEIN 6.4 gm/dL (6.4-8.2)
[2020-09-14 08:00] VITALS: BP 122/66
[2020-09-14 12:00] VITALS: BP 109/58
[2020-09-14 16:00] VITALS: BP 110/92
[2020-09-14 20:00] VITALS: BP 140/71
[2020-09-15] VITALS: BP 141/85
[2020-09-15 06:02] LABS: BUN 26 mg/dl (7-24); CHLORIDE 111 mmol/L (98-107); CREATININE 1.02 mg/dL (0.55-1.02); SODIUM 140 mmol/L (136-145)
[2020-09-15 08:00] VITALS: BP 133/72
[2020-09-15 12:00] VITALS: BP 132/70
[2020-09-15 16:00] VITALS: BP 113/57
[2020-09-15 20:00] VITALS: BP 131/90
[2020-09-16] VITALS: BP 113/63
[2020-09-16 06:16] LABS: BASO % 0.4 % (0.0-1.0); EOS # 0.2 10*3/uL (0.0-0.4); EOS % 2.2 % (1.0-4.0); HEMATOCRIT 36.7 % (37.0-47.0); LYMPH # 1.8 10*3/uL (1.3-4.4); LYMPH % 18.1 % (27.0-41.0); MEAN CELL VOLUME 90.6 fl (81.0-99.0); MEAN CORPUSCULAR HGB 28.1 pg (27.0-31.0); MEAN CORPUSCULAR HGB CONC 31.1 g/dl (33.0-37.0); MEAN PLATELET VOLUME 10.2 fl (9.6-12.3); MONO # 0.7 10*3/uL (0.1-1.0); NEUT # 7.2 10*3/uL (2.3-7.9); NEUT % 71.9 % (47.0-73.0); PLATELET COUNT AUTOMATED 193 10*3/uL (130-400); RED BLOOD COUNT 4.05 10*6/uL (4.10-5.10); RED CELL DISTRI WIDTH 17.2 % (0-14.5)
[2020-09-16 06:26] LABS: CREATININE 1.1 mg/dL (0.55-1.02); POTASSIUM 4.2 mmol/L (3.5-5.1)
[2020-09-16 08:00] VITALS: BP 151/91
[2020-09-16 12:00] VITALS: BP 137/70
== END 2020-09-16 13:52 | disposition home or self-care (01) | DRG 604 ==
LOC: ED 11:07 → EDHOLD 13:13 → 4E 13:13 → EDHOLD 14:37 → 4E 15:02
PROVIDERS: Emergency Medicine; Social Worker Clinical; Student in an Organized Health Care Education/Training Program; ADMIT Family Medicine; ATTEND Family Medicine
DX: S00.03XA Contusion of scalp, initial encounter (principal); N17.0 Acute kidney failure with tubular necrosis; I50.32 Chronic diastolic (congestive) heart failure; I24.9 Acute ischemic heart disease, unspecified; W19.XXXA Unspecified fall, initial encounter; I48.91 Unspecified atrial fibrillation; M26.609 Unspecified temporomandibular joint disorder, unspecified side; K21.9 Gastro-esophageal reflux disease without esophagitis; R55 Syncope and collapse; I13.10 Hypertensive heart and chronic kidney disease without heart failure, with stage 1 through stage 4 chronic kidney disease, or unspecified chronic kidney disease; E11.65 Type 2 diabetes mellitus with hyperglycemia; E11.22 Type 2 diabetes mellitus with diabetic chronic kidney disease; E11.41 Type 2 diabetes mellitus with diabetic mononeuropathy; E11.51 Type 2 diabetes mellitus with diabetic peripheral angiopathy without gangrene; E03.9 Hypothyroidism, unspecified; N18.32 Chronic kidney disease, stage 3b; Y93.89 Activity, other specified; Y99.8 Other external cause status; Y92.009 Unspecified place in unspecified non-institutional (private) residence as the place of occurrence of the external cause; Z90.710 Acquired absence of both cervix and uterus; Z79.01 Long term (current) use of anticoagulants; Z88.0 Allergy status to penicillin; Z91.041 Radiographic dye allergy status; Z88.8 Allergy status to other drugs, medicaments and biological substances; Z90.49 Acquired absence of other specified parts of digestive tract; Z79.899 Other long term (current) drug therapy

== ENCOUNTER 2020-11-26 10:35 | Inpatient (IN) | payer MEDICARE, OTHER ==
[~2020-11-26] VITALS: Ht 165.1 cm; Wt 59.4 kg
[2020-11-26 10:52] VITALS: BP 140/80
[2020-11-26 11:03] LABS: BASO % 0.3 % (0.0-1.0); EOS # 0.4 10*3/uL (0.0-0.4); EOS % 3.5 % (1.0-4.0); HEMATOCRIT 41.8 % (37.0-47.0); LYMPH # 1.8 10*3/uL (1.3-4.4); LYMPH % 15.5 % (27.0-41.0); MEAN CELL VOLUME 89.1 fl (81.0-99.0); MEAN CORPUSCULAR HGB 28.4 pg (27.0-31.0); MEAN CORPUSCULAR HGB CONC 31.8 g/dl (33.0-37.0); MEAN PLATELET VOLUME 9.5 fl (9.6-12.3); MONO # 0.9 10*3/uL (0.1-1.0); MONO % 7.6 % (3.0-9.0); NEUT # 8.5 10*3/uL (2.3-7.9); NEUT % 72.8 % (47.0-73.0); PLATELET COUNT AUTOMATED 254 10*3/uL (130-400); RED BLOOD COUNT 4.69 10*6/uL (4.10-5.10); RED CELL DISTRI WIDTH 13.9 % (0-14.5); WHITE BLOOD COUNT 11.6 10*3/uL (4.8-10.8)
[2020-11-26 11:22] LABS: CREATININE 1.37 mg/dL (0.55-1.02); POTASSIUM 4.5 mmol/L (3.5-5.1); TOTAL PROTEIN 7.4 gm/dL (6.4-8.2)
[2020-11-26 11:29] LABS: TROPONIN I 0.086 ng/ml (<0.045)
[2020-11-26 19:34] VITALS: BP 137/81
[2020-11-27 02:33] VITALS: BP 114/60
[2020-11-27 06:49] VITALS: BP 110/68
[2020-11-27 07:14] LABS: BASO % 0.4 % (0.0-1.0); EOS # 0.4 10*3/uL (0.0-0.4); EOS % 3.4 % (1.0-4.0); HEMATOCRIT 45.4 % (37.0-47.0); LYMPH % 18.6 % (27.0-41.0); MEAN CELL VOLUME 87.8 fl (81.0-99.0); MEAN CORPUSCULAR HGB 27.9 pg (27.0-31.0); MEAN CORPUSCULAR HGB CONC 31.7 g/dl (33.0-37.0); MEAN PLATELET VOLUME 9.9 fl (9.6-12.3); MONO # 0.7 10*3/uL (0.1-1.0); MONO % 6.6 % (3.0-9.0); NEUT # 7.4 10*3/uL (2.3-7.9); NEUT % 70.6 % (47.0-73.0); PLATELET COUNT AUTOMATED 291 10*3/uL (130-400); RED BLOOD COUNT 5.17 10*6/uL (4.10-5.10); RED CELL DISTRI WIDTH 13.7 % (0-14.5); WHITE BLOOD COUNT 10.5 10*3/uL (4.8-10.8)
[2020-11-27 07:48] LABS: ACT PARTIAL THROMBO TIME 28.5 SECONDS (20.0-32.1)
[2020-11-27 07:51] LABS: ALBUMIN 3.1 gm/dl (3.1-4.5); CREATININE 1.22 mg/dL (0.55-1.02); POTASSIUM 4.5 mmol/L (3.5-5.1); TOTAL PROTEIN 7.7 gm/dL (6.4-8.2)
[2020-11-27 10:35] VITALS: BP 131/78
[2020-11-27 13:10] VITALS: BP 123/64
== END 2020-11-27 16:35 | disposition home or self-care (01) | DRG 313 ==
LOC: ED 10:35 → EDHOLD 14:36
PROVIDERS: Emergency Medicine; Internal Medicine; ADMIT Family Medicine; ATTEND Family Medicine
PROC: 4A02XM4 Measurement of Cardiac Total Activity, External Approach (ICD-10-PCS; principal; 2020-11-27)
PROC: 3E073KZ Introduction of Other Diagnostic Substance into Coronary Artery, Percutaneous Approach (ICD-10-PCS; 2020-11-27)
DX: R07.89 Other chest pain (principal); N17.0 Acute kidney failure with tubular necrosis; E44.0 Moderate protein-calorie malnutrition; I48.21 Permanent atrial fibrillation; I13.0 Hypertensive heart and chronic kidney disease with heart failure and stage 1 through stage 4 chronic kidney disease, or unspecified chronic kidney disease; I50.32 Chronic diastolic (congestive) heart failure; Z66 Do not resuscitate; Z51.5 Encounter for palliative care; E11.51 Type 2 diabetes mellitus with diabetic peripheral angiopathy without gangrene; K21.9 Gastro-esophageal reflux disease without esophagitis; E11.42 Type 2 diabetes mellitus with diabetic polyneuropathy; I27.20 Pulmonary hypertension, unspecified; I08.3 Combined rheumatic disorders of mitral, aortic and tricuspid valves; E11.65 Type 2 diabetes mellitus with hyperglycemia; E11.22 Type 2 diabetes mellitus with diabetic chronic kidney disease; N18.32 Chronic kidney disease, stage 3b; Z88.0 Allergy status to penicillin; Z91.041 Radiographic dye allergy status; Z80.0 Family history of malignant neoplasm of digestive organs; Z88.8 Allergy status to other drugs, medicaments and biological substances; Z90.710 Acquired absence of both cervix and uterus; Z90.49 Acquired absence of other specified parts of digestive tract; Z98.42 Cataract extraction status, left eye; Z98.41 Cataract extraction status, right eye; Z79.899 Other long term (current) drug therapy

== ENCOUNTER 2021-05-23 10:50 | Emergency (ER) | payer MEDICARE, OTHER ==
[~2021-05-23] VITALS: Ht 165.1 cm; Wt 63.5 kg
[2021-05-23 11:08] VITALS: BP 154/85
[2021-05-23] MEDS ORDERED: PREDNISONE20 M1 PO (14:05)
== END 2021-05-23 14:21 | disposition home or self-care (01) ==
LOC: ED 10:50
DX: S50.02XA Contusion of left elbow, initial encounter (principal); M25.551 Pain in right hip; Z90.49 Acquired absence of other specified parts of digestive tract; Z90.710 Acquired absence of both cervix and uterus; Z79.899 Other long term (current) drug therapy; Z98.890 Other specified postprocedural states; W18.39XA Other fall on same level, initial encounter; Y93.89 Activity, other specified; Y92.89 Other specified places as the place of occurrence of the external cause; Y99.8 Other external cause status

== ENCOUNTER 2021-06-03 10:13 | Emergency (ER) | payer MEDICARE, OTHER ==
[~2021-06-03] VITALS: Wt 64.4 kg
[~2021-06-03 10:13] MED LIST changes: +PREDNISONE20 M1 PO
[2021-06-03 11:42] LABS: BASO % 0.4 % (0.0-1.0); EOS # 0.2 10*3/uL (0.0-0.4); EOS % 2.5 % (1.0-4.0); HEMATOCRIT 41.5 % (37.0-47.0); LYMPH # 1.5 10*3/uL (1.3-4.4); LYMPH % 18.7 % (27.0-41.0); MEAN CELL VOLUME 91.6 fl (81.0-99.0); MEAN CORPUSCULAR HGB 28.7 pg (27.0-31.0); MEAN CORPUSCULAR HGB CONC 31.3 g/dl (33.0-37.0); MEAN PLATELET VOLUME 9.9 fl (9.6-12.3); MONO # 0.7 10*3/uL (0.1-1.0); MONO % 8.8 % (3.0-9.0); NEUT # 5.6 10*3/uL (2.3-7.9); PLATELET COUNT AUTOMATED 231 10*3/uL (130-400); RED BLOOD COUNT 4.53 10*6/uL (4.10-5.10); RED CELL DISTRI WIDTH 16.5 % (0-14.5); WHITE BLOOD COUNT 8.1 10*3/uL (4.8-10.8)
[2021-06-03 12:00] LABS: CREATININE 1.34 mg/dL (0.55-1.02); TOTAL PROTEIN 6.8 gm/dL (6.4-8.2)
[2021-06-03 12:45] VITALS: BP 129/81
== END 2021-06-03 14:59 | disposition home or self-care (01) ==
LOC: ED 10:13
PROVIDERS: Emergency Medicine
DX: S50.12XD Contusion of left forearm, subsequent encounter (principal); R74.8 Abnormal levels of other serum enzymes; Z91.041 Radiographic dye allergy status; Z88.0 Allergy status to penicillin; Z79.899 Other long term (current) drug therapy; Z98.890 Other specified postprocedural states; Z90.49 Acquired absence of other specified parts of digestive tract; Z90.710 Acquired absence of both cervix and uterus; W19.XXXD Unspecified fall, subsequent encounter

== ENCOUNTER 2021-06-24 22:35 | Emergency (ER) | payer MEDICARE, OTHER ==
[~2021-06-24] VITALS: Ht 152.4 cm; Wt 72.2 kg
[2021-06-24] MEDS ORDERED: ALENDRONATE SOD70 M1 PO (23:54)
[2021-06-24] MEDS ORDERED: TRULICITY3 MG/0.5 M SC (23:55)
[2021-06-25 00:11] LABS: BASO % 0.3 % (0.0-1.0); EOS # 0.1 10*3/uL (0.0-0.4); EOS % 1.4 % (1.0-4.0); HEMATOCRIT 40.1 % (37.0-47.0); LYMPH % 10.3 % (27.0-41.0); MEAN CELL VOLUME 90.7 fl (81.0-99.0); MEAN CORPUSCULAR HGB 28.1 pg (27.0-31.0); MEAN CORPUSCULAR HGB CONC 30.9 g/dl (33.0-37.0); MEAN PLATELET VOLUME 9.8 fl (9.6-12.3); MONO # 0.7 10*3/uL (0.1-1.0); MONO % 6.9 % (3.0-9.0); NEUT # 7.8 10*3/uL (2.3-7.9); NEUT % 80.9 % (47.0-73.0); PLATELET COUNT AUTOMATED 255 10*3/uL (130-400); RED BLOOD COUNT 4.42 10*6/uL (4.10-5.10); RED CELL DISTRI WIDTH 15.8 % (0-14.5); WHITE BLOOD COUNT 9.7 10*3/uL (4.8-10.8)
[2021-06-25] MEDS ORDERED: DONEPEZIL HCL10 MG PO (00:14)
[2021-06-25 00:33] LABS: CREATININE 1.29 mg/dL (0.55-1.02); POTASSIUM 4.9 mmol/L (3.5-5.1); TOTAL PROTEIN 6.9 gm/dL (6.4-8.2)
[2021-06-25 00:41] LABS: BILIRUBIN Negative (Negative); BLOOD Negative (Negative); CLARITY Clear (Clear); COLOR Yellow (Yellow); GLUCOSE Negative (Negative); KETONE Trace (Negative); LEUKO ESTERASE Negative (Negative); NITRITE Negative (Negative); SPECIFIC GRAVITY 1.025 (1.001-1.030)
[2021-06-25 00:42] LABS: CKMB 7.7 ng/ml (0.5-3.6)
[2021-06-25 00:56] LABS: ACT PARTIAL THROMBO TIME 27.9 SECONDS (20.0-32.1); INTERNATIONAL NORM RATIO 1.1 (2.0-3.5)
[2021-06-25 01:17] LABS: EPITHELIAL CELLS 16-20
[2021-06-25 01:18] LABS: BACTERIA TRACE
[2021-06-25 05:20] VITALS: BP 137/88
== END 2021-06-25 06:17 | disposition short-term general hospital (02) ==
LOC: ED 22:35
PROVIDERS: Emergency Medicine
DX: I63.9 Cerebral infarction, unspecified (principal); I10 Essential (primary) hypertension; I48.91 Unspecified atrial fibrillation; K21.9 Gastro-esophageal reflux disease without esophagitis; M10.9 Gout, unspecified; E11.9 Type 2 diabetes mellitus without complications; Z79.899 Other long term (current) drug therapy; Z91.041 Radiographic dye allergy status; Z88.0 Allergy status to penicillin; Z90.49 Acquired absence of other specified parts of digestive tract; Z90.710 Acquired absence of both cervix and uterus

== ENCOUNTER 2021-07-31 17:21 | Inpatient (IN) | payer MEDICARE, OTHER ==
[~2021-07-31] VITALS: Ht 157.4 cm; Wt 67.8 kg
[~2021-07-31 17:21] MED LIST changes: +ALENDRONATE SOD70 M1 PO; +DONEPEZIL HCL10 MG PO; +TRULICITY3 MG/0.5 M SC
[2021-07-31 17:33] VITALS: BP 105/62
[2021-07-31] MEDS ORDERED: METOPROLOL SUCC25 M2 PO (18:11)
[2021-07-31 18:18] LABS: BASO # 0.1 10*3/uL (0.0-0.1); BASO % 0.5 % (0.0-1.0); EOS # 0.1 10*3/uL (0.0-0.4); HEMATOCRIT 39.7 % (37.0-47.0); LYMPH # 1.6 10*3/uL (1.3-4.4); LYMPH % 17.1 % (27.0-41.0); MEAN CELL VOLUME 87.6 fl (81.0-99.0); MEAN CORPUSCULAR HGB 26.5 pg (27.0-31.0); MEAN CORPUSCULAR HGB CONC 30.2 g/dl (33.0-37.0); MEAN PLATELET VOLUME 10.7 fl (9.6-12.3); MONO # 1.1 10*3/uL (0.1-1.0); MONO % 12.1 % (3.0-9.0); NEUT # 6.3 10*3/uL (2.3-7.9); NEUT % 68.9 % (47.0-73.0); PLATELET COUNT AUTOMATED 235 10*3/uL (130-400); RED BLOOD COUNT 4.53 10*6/uL (4.10-5.10); RED CELL DISTRI WIDTH 15.5 % (0-14.5); WHITE BLOOD COUNT 9.1 10*3/uL (4.8-10.8)
[2021-07-31] MEDS ORDERED: NEURONTIN100 MG PO (18:30)
[2021-07-31] MEDS ORDERED: FUROSEMIDE20 M1 PO (18:38)
[2021-07-31] MEDS ORDERED: ATORVASTATIN CA40 M1 PO (18:40)
[2021-07-31 18:50] LABS: CREATININE 1.9 mg/dL (0.55-1.02); POTASSIUM 4.6 mmol/L (3.5-5.1); TOTAL PROTEIN 6.8 gm/dL (6.4-8.2)
[2021-07-31 19:35] LABS: BILIRUBIN Negative (Negative); BLOOD Negative (Negative); CLARITY Clear (Clear); COLOR Yellow (Yellow); GLUCOSE Negative (Negative); KETONE Negative (Negative); LEUKO ESTERASE Trace (Negative); NITRITE Negative (Negative); SPECIFIC GRAVITY 1.015 (1.001-1.030)
[2021-07-31 19:44] LABS: BACTERIA 1+; EPITHELIAL CELLS TNTC; HYALINE CAST 0-2; RBC 0-2 rbc/hpf (0-2); WBC 0-2 wbc/hpf (0-5)
[2021-08-01 02:15] VITALS: BP 125/61
[2021-08-01 05:59] LABS: CREATININE 1.76 mg/dL (0.55-1.02); POTASSIUM 4.6 mmol/L (3.5-5.1); TOTAL PROTEIN 6.4 gm/dL (6.4-8.2)
[2021-08-01 06:21] LABS: BASO # 0.1 10*3/uL (0.0-0.1); BASO % 0.5 % (0.0-1.0); EOS # 0.1 10*3/uL (0.0-0.4); EOS % 0.8 % (1.0-4.0); LYMPH # 1.3 10*3/uL (1.3-4.4); LYMPH % 13.4 % (27.0-41.0); MEAN CELL VOLUME 88.4 fl (81.0-99.0); MEAN CORPUSCULAR HGB 26.7 pg (27.0-31.0); MEAN CORPUSCULAR HGB CONC 30.3 g/dl (33.0-37.0); MEAN PLATELET VOLUME 10.8 fl (9.6-12.3); MONO % 10.3 % (3.0-9.0); NEUT # 7.1 10*3/uL (2.3-7.9); NEUT % 74.6 % (47.0-73.0); PLATELET COUNT AUTOMATED 195 10*3/uL (130-400); RED CELL DISTRI WIDTH 15.5 % (0-14.5); WHITE BLOOD COUNT 9.5 10*3/uL (4.8-10.8)
[2021-08-01 08:00] VITALS: BP 132/74; BP 133/74
[2021-08-01] MEDS ORDERED: CEFUROXIME AXE500 MG PO (10:24)
== END 2021-08-01 11:05 | disposition home or self-care (01) | DRG 682 ==
LOC: ED 17:21 → EDHOLD 22:39 → 5E 08-01 00:13
PROVIDERS: Internal Medicine; Nurse Practitioner Family; ADMIT Internal Medicine; ATTEND Internal Medicine
DX: N17.0 Acute kidney failure with tubular necrosis (principal); G93.41 Metabolic encephalopathy; E44.0 Moderate protein-calorie malnutrition; I13.0 Hypertensive heart and chronic kidney disease with heart failure and stage 1 through stage 4 chronic kidney disease, or unspecified chronic kidney disease; I50.32 Chronic diastolic (congestive) heart failure; I48.0 Paroxysmal atrial fibrillation; M19.91 Primary osteoarthritis, unspecified site; Z66 Do not resuscitate; G25.81 Restless legs syndrome; E03.9 Hypothyroidism, unspecified; Z51.5 Encounter for palliative care; K21.9 Gastro-esophageal reflux disease without esophagitis; M1A.9XX0 Chronic gout, unspecified, without tophus (tophi); N28.1 Cyst of kidney, acquired; E11.42 Type 2 diabetes mellitus with diabetic polyneuropathy; E11.65 Type 2 diabetes mellitus with hyperglycemia; E11.51 Type 2 diabetes mellitus with diabetic peripheral angiopathy without gangrene; N18.31 Chronic kidney disease, stage 3a; E11.22 Type 2 diabetes mellitus with diabetic chronic kidney disease; E86.0 Dehydration; Z90.49 Acquired absence of other specified parts of digestive tract; Z90.710 Acquired absence of both cervix and uterus; Z88.0 Allergy status to penicillin; Z91.041 Radiographic dye allergy status; Z88.8 Allergy status to other drugs, medicaments and biological substances; Z79.899 Other long term (current) drug therapy; Z68.27 Body mass index [BMI] 27.0-27.9, adult

== ENCOUNTER 2021-09-15 03:42 | Emergency (ER) | payer MEDICARE, OTHER ==
[~2021-09-15] VITALS: Wt 64.4 kg
[~2021-09-15 03:42] MED LIST changes: +ATORVASTATIN CA40 M1 PO; +CEFUROXIME AXE500 MG PO; +FUROSEMIDE20 M1 PO; +METOPROLOL SUCC25 M2 PO
[2021-09-15 08:16] VITALS: BP 107/77
== END 2021-09-15 09:30 | disposition home or self-care (01) ==
LOC: ED 03:42
DX: S06.0X0A Concussion without loss of consciousness, initial encounter (principal); J44.9 Chronic obstructive pulmonary disease, unspecified; K21.9 Gastro-esophageal reflux disease without esophagitis; M10.9 Gout, unspecified; M19.90 Unspecified osteoarthritis, unspecified site; I48.91 Unspecified atrial fibrillation; E03.9 Hypothyroidism, unspecified; N18.9 Chronic kidney disease, unspecified; I13.0 Hypertensive heart and chronic kidney disease with heart failure and stage 1 through stage 4 chronic kidney disease, or unspecified chronic kidney disease; E11.22 Type 2 diabetes mellitus with diabetic chronic kidney disease; Z88.0 Allergy status to penicillin; Z91.041 Radiographic dye allergy status; Z88.8 Allergy status to other drugs, medicaments and biological substances; Z79.899 Other long term (current) drug therapy; Z98.890 Other specified postprocedural states; Z90.710 Acquired absence of both cervix and uterus; Z90.49 Acquired absence of other specified parts of digestive tract; W07.XXXA Fall from chair, initial encounter; Y93.89 Activity, other specified; Y92.89 Other specified places as the place of occurrence of the external cause; Y99.8 Other external cause status

== ENCOUNTER 2021-09-17 03:33 | Inpatient (IN) | payer MEDICARE, OTHER ==
[~2021-09-17] VITALS: Ht 165.1 cm; Wt 66.5 kg
[2021-09-17] VITALS (7 sets, daily range): BP systolic 90–129; BP diastolic 50–69
[2021-09-17 04:13] LABS: BILIRUBIN 1+ (Negative); BLOOD Negative (Negative); CLARITY Clear (Clear); COLOR Dark Yellow (Yellow); GLUCOSE Negative (Negative); KETONE Trace (Negative); LEUKO ESTERASE Trace (Negative); NITRITE Negative (Negative); PH 5.5 (4.5-8.0); SPECIFIC GRAVITY >= 1.030 (1.001-1.030)
[2021-09-17 04:17] LABS: BASO % 0.2 % (0.0-1.0); EOS % 0.1 % (1.0-4.0); HEMATOCRIT 40.3 % (37.0-47.0); LYMPH # 0.6 10*3/uL (1.3-4.4); LYMPH % 3.8 % (27.0-41.0); MEAN CELL VOLUME 85.7 fl (81.0-99.0); MEAN CORPUSCULAR HGB 24.3 pg (27.0-31.0); MEAN CORPUSCULAR HGB CONC 28.3 g/dl (33.0-37.0); MEAN PLATELET VOLUME 10.6 fl (9.6-12.3); MONO % 6.1 % (3.0-9.0); NEUT # 14.4 10*3/uL (2.3-7.9); NEUT % 89.2 % (47.0-73.0); NUCLEATED RED BLOOD CELL 0.1 % (0.0-0.0); PLATELET COUNT AUTOMATED 197 10*3/uL (130-400); WHITE BLOOD COUNT 16.2 10*3/uL (4.8-10.8)
[2021-09-17 04:21] LABS: BACTERIA 3+
[2021-09-17 04:33] LABS: CREATININE 1.72 mg/dL (0.55-1.02); POTASSIUM 4.7 mmol/L (3.5-5.1); TOTAL PROTEIN 6.5 gm/dL (6.4-8.2)
[2021-09-17] MEDS ORDERED: LASIX20 MG PO (05:08)
[2021-09-17] MEDS ORDERED: ASPIRIN ADULT L81 M1 PO (05:10)
[2021-09-17] MEDS ORDERED: ATORVASTATIN CA40 M1 PO ×2 (05:11)
[2021-09-18] VITALS: BP 96/73
[2021-09-18 06:07] LABS: CREATININE 1.45 mg/dL (0.55-1.02); POTASSIUM 4.5 mmol/L (3.5-5.1); TOTAL PROTEIN 6.4 gm/dL (6.4-8.2)
[2021-09-18 06:29] LABS: BASO % 0.1 % (0.0-1.0); EOS # 0.1 10*3/uL (0.0-0.4); EOS % 0.4 % (1.0-4.0); HEMATOCRIT 39.1 % (37.0-47.0); LYMPH # 1.7 10*3/uL (1.3-4.4); LYMPH % 11.6 % (27.0-41.0); MEAN CORPUSCULAR HGB 24.6 pg (27.0-31.0); MEAN CORPUSCULAR HGB CONC 28.9 g/dl (33.0-37.0); MEAN PLATELET VOLUME 11.2 fl (9.6-12.3); MONO % 6.9 % (3.0-9.0); NEUT # 11.6 10*3/uL (2.3-7.9); NEUT % 80.4 % (47.0-73.0); PLATELET COUNT AUTOMATED 194 10*3/uL (130-400); RED CELL DISTRI WIDTH 18.8 % (0-14.5); WHITE BLOOD COUNT 14.4 10*3/uL (4.8-10.8)
[2021-09-18 08:00] VITALS: BP 98/55
[2021-09-18 12:00] VITALS: BP 104/63
[2021-09-18 16:00] VITALS: BP 91/62
[2021-09-18 20:00] VITALS: BP 95/59
[2021-09-19] VITALS: BP 98/60
[2021-09-19 05:49] LABS: CREATININE 1.54 mg/dL (0.55-1.02)
[2021-09-19 06:14] LABS: HEMATOCRIT 36.6 % (37.0-47.0); MEAN CELL VOLUME 86.3 fl (81.0-99.0); MEAN CORPUSCULAR HGB 24.5 pg (27.0-31.0); MEAN CORPUSCULAR HGB CONC 28.4 g/dl (33.0-37.0); MEAN PLATELET VOLUME 11.3 fl (9.6-12.3); PLATELET COUNT AUTOMATED 187 10*3/uL (130-400); RED BLOOD COUNT 4.24 10*6/uL (4.10-5.10); WHITE BLOOD COUNT 14.7 10*3/uL (4.8-10.8)
[2021-09-19 06:17] LABS: MANUAL DIFF REFLEX YES
[2021-09-19 07:35] LABS: PLATELET SUFFICIENCY NORMAL (NORMAL); TOTAL CELLS COUNTED 100 #CELLS
[2021-09-19 07:36] LABS: ACANTHOCYTES FEW; BURR CELLS MODERATE; OVALOCYTES FEW; POLYCHROMASIA SLIGHT; SPHEROCYTES FEW
[2021-09-19 08:00] VITALS: BP 108/69
[2021-09-19 12:00] VITALS: BP 113/68
[2021-09-19 16:00] VITALS: BP 120/83
[2021-09-19 20:00] VITALS: BP 103/54
[2021-09-20] VITALS: BP 105/55
[2021-09-20 05:04] LABS: CREATININE 1.68 mg/dL (0.55-1.02)
[2021-09-20 05:05] LABS: POTASSIUM 5.4 mmol/L (3.5-5.1)
[2021-09-20 06:05] LABS: HEMATOCRIT 41.5 % (37.0-47.0); MEAN CELL VOLUME 86.8 fl (81.0-99.0); MEAN CORPUSCULAR HGB 24.7 pg (27.0-31.0); MEAN CORPUSCULAR HGB CONC 28.4 g/dl (33.0-37.0); MEAN PLATELET VOLUME 11.2 fl (9.6-12.3); NUCLEATED RED BLOOD CELL 0.1 10*3/uL (0.0-0.0); NUCLEATED RED BLOOD CELL 0.4 % (0.0-0.0); PLATELET COUNT AUTOMATED 207 10*3/uL (130-400); RED BLOOD COUNT 4.78 10*6/uL (4.10-5.10); RED CELL DISTRI WIDTH 19.5 % (0-14.5); WHITE BLOOD COUNT 14.2 10*3/uL (4.8-10.8)
[2021-09-20 06:15] LABS: MANUAL DIFF REFLEX YES
[2021-09-20 06:40] LABS: PLATELET SUFFICIENCY NORMAL (NORMAL); TOTAL CELLS COUNTED 100 #CELLS
[2021-09-20 06:41] LABS: OVALOCYTES FEW; POLYCHROMASIA SLIGHT
[2021-09-20 08:00] VITALS: BP 126/79
[2021-09-20 12:00] VITALS: BP 118/71
[2021-09-20 16:00] VITALS: BP 103/55
[2021-09-20 20:00] VITALS: BP 113/60
[2021-09-21] VITALS: BP 112/87
[2021-09-21 04:58] LABS: CREATININE 1.79 mg/dL (0.55-1.02); POTASSIUM 5.7 mmol/L (3.5-5.1)
[2021-09-21 06:15] LABS: HEMATOCRIT 38.2 % (37.0-47.0); MEAN CORPUSCULAR HGB 24.4 pg (27.0-31.0); MEAN CORPUSCULAR HGB CONC 29.1 g/dl (33.0-37.0); MEAN PLATELET VOLUME 11.2 fl (9.6-12.3); NUCLEATED RED BLOOD CELL 0.2 10*3/uL (0.0-0.0); NUCLEATED RED BLOOD CELL 1.6 % (0.0-0.0); PLATELET COUNT AUTOMATED 219 10*3/uL (130-400); RED BLOOD COUNT 4.55 10*6/uL (4.10-5.10); WHITE BLOOD COUNT 9.6 10*3/uL (4.8-10.8)
[2021-09-21 06:24] LABS: MANUAL DIFF REFLEX YES
[2021-09-21 07:19] LABS: PLATELET SUFFICIENCY NORMAL (NORMAL); POLYCHROMASIA SLIGHT; TOTAL CELLS COUNTED 100 #CELLS
[2021-09-21 07:20] LABS: BURR CELLS FEW
[2021-09-21 08:00] VITALS: BP 121/73
[2021-09-21 12:00] VITALS: BP 113/92
[2021-09-21 16:00] VITALS: BP 120/77
[2021-09-21 20:00] VITALS: BP 109/60
[2021-09-22] VITALS: BP 141/78
[2021-09-22 05:51] LABS: CREATININE 2.1 mg/dL (0.55-1.02); POTASSIUM 5.9 mmol/L (3.5-5.1)
[2021-09-22 06:35] LABS: HEMATOCRIT 35.7 % (37.0-47.0); MEAN CELL VOLUME 81.1 fl (81.0-99.0); MEAN CORPUSCULAR HGB 23.9 pg (27.0-31.0); MEAN CORPUSCULAR HGB CONC 29.4 g/dl (33.0-37.0); MEAN PLATELET VOLUME 11.7 fl (9.6-12.3); NUCLEATED RED BLOOD CELL 0.2 10*3/uL (0.0-0.0); NUCLEATED RED BLOOD CELL 1.7 % (0.0-0.0); PLATELET COUNT AUTOMATED 191 10*3/uL (130-400); RED CELL DISTRI WIDTH 19.2 % (0-14.5); WHITE BLOOD COUNT 11.4 10*3/uL (4.8-10.8)
[2021-09-22 06:47] LABS: MANUAL DIFF REFLEX YES
[2021-09-22 07:58] LABS: TOTAL CELLS COUNTED 100 #CELLS
[2021-09-22 07:59] LABS: BURR CELLS FEW; OVALOCYTES FEW; PLATELET SUFFICIENCY NORMAL (NORMAL); POLYCHROMASIA SLIGHT; ROULEAUX SLIGHT; SCHISTOCYTES FEW; TARGET CELLS FEW
[2021-09-22 08:00] VITALS: BP 107/43
[2021-09-22 12:00] VITALS: BP 110/64
[2021-09-22 16:00] VITALS: BP 98/62
[2021-09-22 16:05] LABS: CREATININE 2.25 mg/dL (0.55-1.02)
[2021-09-22 16:30] LABS: POTASSIUM 4.7 mmol/L (3.5-5.1)
[2021-09-22 20:00] VITALS: BP 94/69
[2021-09-23] VITALS: BP 112/78
[2021-09-23 06:22] LABS: HEMATOCRIT 35.4 % (37.0-47.0); MEAN CELL VOLUME 79.7 fl (81.0-99.0); MEAN CORPUSCULAR HGB 24.3 pg (27.0-31.0); MEAN CORPUSCULAR HGB CONC 30.5 g/dl (33.0-37.0); MEAN PLATELET VOLUME 11.3 fl (9.6-12.3); NUCLEATED RED BLOOD CELL 0.1 10*3/uL (0.0-0.0); NUCLEATED RED BLOOD CELL 1.1 % (0.0-0.0); PLATELET COUNT AUTOMATED 193 10*3/uL (130-400); RED BLOOD COUNT 4.44 10*6/uL (4.10-5.10); RED CELL DISTRI WIDTH 18.8 % (0-14.5); WHITE BLOOD COUNT 11.3 10*3/uL (4.8-10.8)
[2021-09-23 06:29] LABS: MANUAL DIFF REFLEX YES
[2021-09-23 07:10] LABS: CREATININE 2.22 mg/dL (0.55-1.02)
[2021-09-23 07:38] LABS: BURR CELLS FEW; MICROCYTOSIS SLIGHT; TARGET CELLS FEW; TOTAL CELLS COUNTED 100 #CELLS
[2021-09-23 07:39] LABS: OVALOCYTES FEW; PLATELET SUFFICIENCY NORMAL (NORMAL); POLYCHROMASIA SLIGHT
[2021-09-23 08:00] VITALS: BP 115/83
[2021-09-23 12:00] VITALS: BP 120/78
[2021-09-23 16:00] VITALS: BP 111/65
[2021-09-23 20:00] VITALS: BP 102/71
[2021-09-24] VITALS: BP 121/81
[2021-09-24 05:28] LABS: CREATININE 2.08 mg/dL (0.55-1.02); POTASSIUM 3.7 mmol/L (3.5-5.1); TOTAL PROTEIN 6.4 gm/dL (6.4-8.2)
[2021-09-24 07:06] LABS: HEMATOCRIT 37.8 % (37.0-47.0); MEAN CELL VOLUME 79.1 fl (81.0-99.0); MEAN CORPUSCULAR HGB 24.1 pg (27.0-31.0); MEAN CORPUSCULAR HGB CONC 30.4 g/dl (33.0-37.0); MEAN PLATELET VOLUME 11.2 fl (9.6-12.3); NUCLEATED RED BLOOD CELL 0.1 10*3/uL (0.0-0.0); NUCLEATED RED BLOOD CELL 0.6 % (0.0-0.0); PLATELET COUNT AUTOMATED 167 10*3/uL (130-400); RED BLOOD COUNT 4.78 10*6/uL (4.10-5.10); RED CELL DISTRI WIDTH 19.1 % (0-14.5); WHITE BLOOD COUNT 13.8 10*3/uL (4.8-10.8)
[2021-09-24 07:07] LABS: MANUAL DIFF REFLEX YES
[2021-09-24 08:00] VITALS: BP 122/75
[2021-09-24 08:13] LABS: BURR CELLS FEW; OVALOCYTES FEW; PLATELET SUFFICIENCY NORMAL (NORMAL); ROULEAUX SLIGHT; TOTAL CELLS COUNTED 100 #CELLS
[2021-09-24 08:14] LABS: MICROCYTOSIS SLIGHT; SCHISTOCYTES FEW; TARGET CELLS FEW
[2021-09-24 12:00] VITALS: BP 91/63
[2021-09-24 16:00] VITALS: BP 106/78
[2021-09-24 20:00] VITALS: BP 110/45
[2021-09-25] VITALS: BP 111/57
[2021-09-25 06:13] LABS: HEMATOCRIT 37.2 % (37.0-47.0); MEAN CELL VOLUME 80.3 fl (81.0-99.0); MEAN CORPUSCULAR HGB CONC 29.8 g/dl (33.0-37.0); MEAN PLATELET VOLUME 11.3 fl (9.6-12.3); NUCLEATED RED BLOOD CELL 0.1 10*3/uL (0.0-0.0); NUCLEATED RED BLOOD CELL 1.1 % (0.0-0.0); PLATELET COUNT AUTOMATED 162 10*3/uL (130-400); RED BLOOD COUNT 4.63 10*6/uL (4.10-5.10); RED CELL DISTRI WIDTH 19.2 % (0-14.5)
[2021-09-25 06:24] LABS: MANUAL DIFF REFLEX YES
[2021-09-25 06:28] LABS: INTERNATIONAL NORM RATIO 1.5 (2.0-3.5)
[2021-09-25 06:34] LABS: CREATININE 1.97 mg/dL (0.55-1.02); POTASSIUM 3.5 mmol/L (3.5-5.1); TOTAL PROTEIN 6.5 gm/dL (6.4-8.2)
[2021-09-25 07:23] LABS: PLATELET SUFFICIENCY NORMAL (NORMAL); POLYCHROMASIA SLIGHT; TOTAL CELLS COUNTED 100 #CELLS
[2021-09-25 07:24] LABS: BURR CELLS FEW
[2021-09-25 08:00] VITALS: BP 113/64
[2021-09-25] MEDS ORDERED: GABAPENTIN100 M2 PO (11:26)
[2021-09-25] MEDS ORDERED: PREDNISONE10 MG PO (11:26)
[2021-09-25] MEDS ORDERED: ELIQUIS5 M1 PO (11:26)
[2021-09-25 12:00] VITALS: BP 115/68
[2021-09-26 06:07] LABS: HBSAG Negative (Negative); HEP B CORE AB, IGM Negative (Negative); HEPATITIS C ANTIBODY <0.1 (0.0-0.9)
== END 2021-09-25 16:39 | DRG 871 ==
LOC: ED 03:33 → 4E 05:03 → EDHOLD 05:03 → 4E 11:03
PROVIDERS: Internal Medicine; Student in an Organized Health Care Education/Training Program; ADMIT Internal Medicine; ATTEND Internal Medicine
DX: A41.9 Sepsis, unspecified organism (principal); G93.41 Metabolic encephalopathy; E43 Unspecified severe protein-calorie malnutrition; N17.0 Acute kidney failure with tubular necrosis; N39.0 Urinary tract infection, site not specified; I50.32 Chronic diastolic (congestive) heart failure; I13.0 Hypertensive heart and chronic kidney disease with heart failure and stage 1 through stage 4 chronic kidney disease, or unspecified chronic kidney disease; E87.2 Acidosis; R65.20 Severe sepsis without septic shock; I48.91 Unspecified atrial fibrillation; M26.609 Unspecified temporomandibular joint disorder, unspecified side; Z20.822 Contact with and (suspected) exposure to COVID-19; Z66 Do not resuscitate; N18.9 Chronic kidney disease, unspecified; E11.51 Type 2 diabetes mellitus with diabetic peripheral angiopathy without gangrene; M10.9 Gout, unspecified; K21.9 Gastro-esophageal reflux disease without esophagitis; M19.90 Unspecified osteoarthritis, unspecified site; G25.81 Restless legs syndrome; E03.9 Hypothyroidism, unspecified; D64.9 Anemia, unspecified; E11.65 Type 2 diabetes mellitus with hyperglycemia; E80.6 Other disorders of bilirubin metabolism; E11.42 Type 2 diabetes mellitus with diabetic polyneuropathy; S30.811A Abrasion of abdominal wall, initial encounter; X58.XXXA Exposure to other specified factors, initial encounter; L89.522 Pressure ulcer of left ankle, stage 2; S90.425A Blister (nonthermal), left lesser toe(s), initial encounter; R41.0 Disorientation, unspecified; E87.5 Hyperkalemia; R74.01 Elevation of levels of liver transaminase levels; R13.10 Dysphagia, unspecified; S06.0X0D Concussion without loss of consciousness, subsequent encounter; Y93.89 Activity, other specified; Y92.89 Other specified places as the place of occurrence of the external cause; Y99.8 Other external cause status; Z88.0 Allergy status to penicillin; Z88.8 Allergy status to other drugs, medicaments and biological substances; Z91.041 Radiographic dye allergy status; Z51.5 Encounter for palliative care; Z98.42 Cataract extraction status, left eye; Z98.41 Cataract extraction status, right eye; Z90.49 Acquired absence of other specified parts of digestive tract; Z90.710 Acquired absence of both cervix and uterus; Z80.6 Family history of leukemia; Z80.0 Family history of malignant neoplasm of digestive organs; Z68.24 Body mass index [BMI] 24.0-24.9, adult; E11.22 Type 2 diabetes mellitus with diabetic chronic kidney disease; J44.9 Chronic obstructive pulmonary disease, unspecified